=== PATIENT | male | born 1970 | race Caucasian/White ===

== ENCOUNTER 2019-05-22 02:38 | Observation (INO) | payer OTHER, SELFPAY ==
[2019-05-22] VITALS (14 sets, daily range): BP systolic 119–156; BP diastolic 67–108; PULSE 75–100; RESP 16–24; TEMP 36.1–37.7; O2SAT 88–100; BMI 35.8; BMI 38.9
--- NOTE | 2019-05-22 03:11 | CT_ITS ---
STUDY: CT ABDOMEN AND PELVIS WITH CONTRAST REASON FOR EXAM: Male, 48 years old. Right and mid abdominal pain RADIATION DOSAGE (If Supplied By Facility): CTDIvol = ( 18.32 ) mGy, DLP = ( 1202.02 ) mGycm TECHNIQUE: Transaxial images were obtained from the dome of the diaphragm to the symphysis pubis without oral contrast. 100ML IV Isovue 300 was administered. Sagittal and coronal images were reconstructed. Individualized dose optimization techniques were used for this CT. COMPARISON: None. FINDINGS: The lung bases are clear. The liver is normal. No dilated intrahepatic biliary radicles. A small gallstone but no pericholecystic fluid collection The spleen is normal. The pancreas is normal. Both adrenals are normal. The kidneys are normal with no masses, calculi or hydronephrosis The stomach is normal. There is no bowel distention, acute appendicitis or diverticulitis. No constricting lesions are seen in large bowel. The abdominal wall is intact with no hernias. There is no ascites or any free intraperitoneal air. No indication of epiploic appendagitis The vascular structures in the retroperitoneum are normal. There is no retrocrural, retroperitoneal or mesenteric adenopathy. The bones and joints are normal. The urinary bladder is normal. The prostate is normal--. There is no inguinal or pelvic adenopathy. There is no inguinal hernia. . CT/Abdomen/Pelvis W IV Cont ONLY IMPRESSION: A small gallstone. No pericholecystic fluid collection. No acute appendicitis or diverticulitis Electronically Signed: Jagdeep Shrestha MD at 4:35 EDT Tel , Service support ,
[2019-05-22 03:18] LABS: Absolute Neutrophil Count 3.4 X10^3/uL (2.0-7.7); Basophil# 0.06 X10^3/uL; Basophil% 0.6 % (0-1); Eosinophil# 0.43 X10^3/uL; Eosinophils% 4.5 % (0-5); Hematocrit 44.9 % (40-54); Hemoglobin 15.6 g/dL (13.0-16.5); Lymphocyte % 45.5 % (19-41); Mean Corp Hgb Conc 34.7 g/dL (32-36); Mean Corpuscular Hgb 31.1 pg (27.0-32.0); Mean Corpuscular Volume 89.6 fL (80-94); Mean Platelet Vol. 9.2 fl (6.2-12.0); Monocyte# 1.27 X10^3/uL; Monocyte% 13.1 % (0-10); NRBC Flagged by Analyzer 0 % (0-5); Neutrophil # 3.44 X10^3/uL (2.7-7.7); Neutrophil % 35.7 % (47-70); Platelet Count 235 K/mm3 (150-450); RBC Distribution Width CV 12.6 % (11.6-14.6); RBC Distribution Width SD 41.1 fl (35.1-43.9); Red Blood Count 5.01 M/mm3 (4.6-6.2); White Blood Count 9.7 K/mm3 (4.4-11.0)
[2019-05-22] MEDS: 0.9% Normal Saline 1,000 ML 1000 ML IV (03:28)
[2019-05-22] MEDS: Ondansetron 4 MG/2 ML Vial IV (03:28)
[2019-05-22] MEDS: Ketorolac 30 MG/ML Syringe IV (03:29)
[2019-05-22] MEDS: Morphine 4 MG/ML Syringe IV (03:30)
--- NOTE | 2019-05-22 03:32 | ED.VIS.GI ---
History of Present Illness Informant: Patient - Abdominal Pain/Flank Pain Onset: Hours - 3 Context: Gradual Onset Timing: Continuous, Waxes and wanes Quality: Aching Location: - - across upper abdomen, radiates somewhat into mid-back Current Severity: Severe Maximum Severity: Severe Worsened by: - - sitting; states he can't find a comfortable position Relieved by: Nothing - Nausea/Vomiting/Emesis GI Symptom: Nausea. Negative for: Vomiting Severity: Moderate - Diarrhea/Melena/Hematochezia GI Symptom: Negative for: Diarrhea, Melena, Hematochezia Associated Symptoms: Negative for: Dysuria, Frequency, Hematuria, Urgency Narrative: Last ate about 3-4 hours prior to onset of symptoms, states he had taco meat. No history of abdominal surgeries or other major medical problems. Prior similar symptoms: No <Hammad Estes - Last Filed: 05/22/19 06:46> <Esha Arteaga - Last Filed: 05/22/19 08:30> Chief Complaint: Abd Pain Past Medical History Past Medical History: None Smoking Status: Never smoker Drugs: None <Hammad Estes - Last Filed: 05/22/19 06:46> <Esha Arteaga - Last Filed: 05/22/19 08:30> - Allergies and Home Meds Allergies/Adverse Reactions: Allergies shellfish derived Allergy (Verified 05/22/19 02:51) Anaphylaxis Primary Care Physician: Dennis Austin DO [Primary Care Provider] - Review of Systems General: Reports: Malaise. Denies: Chills, Fever, Sweats Eyes: Denies: Visual changes - bilaterally, Diplopia ENT: Denies: Rhinorrhea, Sore throat Cardiovascular: Denies: Chest pain, Palpitations Respiratory: Denies: Dyspnea, Cough, Dyspnea on exertion Gastrointestinal: Reports: Abdominal pain, Nausea. Denies: Vomiting, Diarrhea, Melena, Hematochezia Genitourinary: Denies: Dysuria, Hematuria, Frequency Musculoskeletal: Reports: Back pain. Denies: Extremity Pain Skin: Denies: Rash, Wounds Neurological: Denies: Headache, Weakness, Numbness <Hammad Estes - Last Filed: 05/22/19 06:46> Physical Exam Vital Signs/Narrative: Vital Signs Temp Pulse Resp BP Pulse Ox 05/22/19 02:39 99.8 F H 80 24 H 145/108 H 96 Inital Vital Signs reviewed: Yes General: Well nourished, Well developed, No Acute Distress - Uncomfortable, no distress Head: Normocephalic, Atraumatic Eyes: Perrl, EOMI ENT: Moist mucous membranes, No rhinorrhea Neck: Supple, Nontender Cardiovascular: Regular rate, Regular rhythm, No murmurs Respiratory: No distress, CTA bilaterally, Chest nontender Abdomen: Soft, Nondistended, Normal bowel sounds, Tender - Throughout upper abdomen, mostly right upper quadrant. Minimal discomfort with palpation right lower quadrant., Cash's sign. Negative for: Rebound tenderness Back: Nontender, Normal Inspection. Negative for: CVA tenderness Extremities: Nontender, No edema. Negative for: Calf Tenderness Skin: Normal color, No rash, Diaphoresis - in face, No Trauma Neurological: Alert, Oriented x3, Cranial nerves II-XII grossly intact, Normal Strength, Normal Sensation Psychological: Normal affect, Normal Mood <Hammad Estes - Last Filed: 05/22/19 06:46> Vital Signs/Narrative: Vital Signs Pulse Resp BP Pulse Ox 05/22/19 04:52 87 22 H 125/71 H 96 <Esha Arteaga - Last Filed: 05/22/19 08:30> Diagnostic/Tx/Re-eval Impressions Abdomen/Pelvis CT 05/22/19 03:11 IMPRESSION: A small gallstone. No pericholecystic fluid collection. No acute appendicitis or diverticulitis Electronically Signed: Jagdeep Shrestha MD at 4:35 EDT Tel , Service support , ADDENDUM: 05/22/19 0529 05/22/19 03:11 Abdomen/Pelvis W IV Cont ONLY [CT] Stat 05/22/19 05:29 US Gallbladder [Gallbladder] [US] Stat Laboratory Results 05/22/19 05/22/19 05/22/19 02:45 02:45 04:45 WBC 9.7 RBC 5.01 Hgb 15.6 Hct 44.9 MCV 89.6 MCH 31.1 MCHC 34.7 RDW Std Deviation 41.1 RDW Coeff of Bereket 12.6 Plt Count 235 MPV 9.2 Immature Gran % (Auto) 0.600 Neut % (Auto) 35.7 L Lymph % (Auto) 45.5 H [place] % (Auto) 13.1 H Eos % (Auto) 4.5 Baso % (Auto) 0.6 Absolute Neuts (auto) 3.4 Absolute Lymphs (auto) 4.40 Absolute Nucleated RBC 0.00 Nucleated RBC % 0 Sodium 143 Potassium 3.7 Chloride 107 Carbon Dioxide 28.0 Anion Gap 8 BUN 17 Creatinine 0.89 Estim Creat Clear Calc 91.60 Est GFR (MDRD) Af Amer 118 Est GFR (MDRD) Non-Af 97 BUN/Creatinine Ratio 19.2 Glucose 119 H Calcium 9.6 Total Bilirubin 0.40 AST 29 ALT 77 H Alkaline Phosphatase 72 Total Protein 7.6 Albumin 4.1 Globulin 3.5 Albumin/Globulin Ratio 1.2 Lipase 395 H Urine Color Yellow Urine Clarity Clear Urine pH 5.0 Ur Specific [place] 1.015 Urine Protein Negative Urine Glucose (UA) Normal Urine Ketones Negative Urine Occult Blood Negative Urine Nitrite Negative Urine Bilirubin Negative Urine Urobilinogen Normal Ur Leukocyte Esterase Negative Urine RBC 0 SEEN Urine WBC 0 SEEN Ur Squamous Epith Cells 0 SEEN Urine Bacteria 0 SEEN Urine Mucus 0 SEEN - Medical Decision Making With IV fluids, Zofran, morphine, Toradol, patient is feeling much better. His labs are only remarkable for a lipase that is just barely outside of the normal range at 395, the normal range ending at 393. The rest of his liver enzymes including total bilirubin are unremarkable, he has no significant leukocytosis. CT of the abdomen and pelvis was performed since ultrasound is not available at this hour, which shows an intraluminal gallstone, but also a gallstone that appears to be stuck within the cystic duct. There is no ductal dilatation of the common bile duct or pancreatic duct from what could be said about them on CT imaging. I discussed all this with the radiologist as he initially did not mention the other stone that was in the cystic duct. This is the stone that I suspect is giving him symptoms right now. He is clinically and hemodynamically stable. I discussed with Dr. roa on for surgery, who advises getting an ultrasound and watching him in the emergency department, reporting the results to her when they are available, as depending on the results, he may need to be admitted since there is no one at this hospital this weekend who is able to perform ERCP, should he need it. I discussed this with the patient and his , and he will be checked out to the oncoming emergency physician for final disposition. <Hammad Estes - Last Filed: 05/22/19 06:46> - Medical Decision Making Dr. Roa presented to the emergency room after reviewing the patient's ultrasound. She will take the patient for a lap memo from the emergency room. If ERCP is needed Dr. Storey will be coming in to help with that as well. Disposition: Admit Impression: Cholecystitis secondary to stone and common bile duct. <Esha Arteaga - Last Filed: 05/22/19 08:30> ED Disposition <Hammad Estes - Last Filed: 05/22/19 06:46> <Esha Arteaga - Last Filed: 05/22/19 08:30> - Plan for ED Patient: Diagnosis: Biliary colic, Cystic duct calculus, Cholelithiasis Referrals: Dennis Austin DO [Primary Care Provider] -
[2019-05-22 03:41] LABS: ALB/GLOB Ratio 1.2 RATIO (0.9-2.4); AST(SGOT) 29 U/L (15-37); Alanine Aminotransfer ALT/SGPT 77 U/L (16-61); Albumin, Serum 4.1 g/dL (3.2-5.0); Alkaline Phosphatase 72 U/L (45-117); Anion Gap 8 (5-15); BUN 17 mg/dL (7-18); BUN/Creat Ratio 19.2 RATIO (10-20); Calcium,Total 9.6 mg/dL (8.5-10.1); Chloride 107 mmol/L (98-107); Creatinine, Serum 0.89 mg/dL (0.70-1.30); EST Glomerular Filtration Rate 97 mL/min (>60); Est Glom Filt Rate - Afr Amer 118 mL/min (>60); Globulin 3.5 g/dL (2.2-4.2); Glucose 119 mg/dL (74-106); Lipase 395 U/L (73-393); Potassium 3.7 mmol/L (3.5-5.1); Protein, Total 7.6 g/dL (6.4-8.2); Sodium Level 143 mmol/L (136-145)
[2019-05-22 04:53] LABS: Bacteria 0 SEEN /hpf (None Seen); Mucous, Urine 0 SEEN /hpf (<or=2+); Red Blood Cells-Urine 0 SEEN /hpf (0-5); Squamous Epithelial Cells - UA 0 SEEN /hpf (0-5); White Blood Cells 0 SEEN /hpf (0-5)
[2019-05-22 04:54] LABS: Color, Urine Yellow (Yellow); Glucose, Dipstick Normal (Normal); Ketone-Dipstick Negative (Negative); Leukocyte Esterase-Dipstick Negative /ul (Negative); Nitrite-Dipstick Negative (Negative); Occult Blood-Urine Negative /ul (Negative); Protein-Dipstick Negative (Negative); Specific Gravity, Urine 1.015 (1.002-1.030); Urine Bilirubin Dipstick Negative (Negative); Urine Clarity Clear (Clear); Urine Urobilinogen Normal (Normal)
--- NOTE | 2019-05-22 05:29 | US_ITS ---
STUDY: ABDOMINAL ULTRASOUND - RIGHT UPPER QUADRANT REASON FOR VISIT: Male, 48 years old. Right upper quadrant pain. TECHNIQUE: Ultrasound evaluation of the right upper quadrant was performed with real-time and static kim-scale imaging. TECHNICAL QUALITY: Adequate. COMPARISON: None. FINDINGS: Liver: The liver measures 20 cm. There is mild increased echogenicity consistent with fatty infiltration. The bile ducts are within normal limits. There is hepatic color flow. The direction of portal flow is hepatopetal. There is no demonstrated mass lesion. Gallbladder: Normal distended gallbladder. The gallbladder wall measures 3.5 mm. There is a negative sonographic Cash's sign. There is mild pericholecystic fluid. There are small gallstones near the gallbladder neck. Common Bile Duct (C.B.D.): The common bile duct measures 6 mm. There is questionable echogenic shadow which may represent stone in the proximal common bile duct. Pancreas: The pancreas is grossly unremarkable but the tail of the pancreas is obscured by bowel gas. There is normal echogenicity of the pancreas. There is no demonstrated pancreatic mass or cyst. Right Kidney: Normal size of the right kidney. The right kidney measures 13 x 5.7 x 4.9 cm. Normal renal cortex. The right cortex measures 1.5 cm. There is no demonstrated renal mass or cyst. There is no right hydronephrosis. US/Gallbladder IMPRESSION: Multiple small gallstones with mild pericholecystic fluid. Borderline to mild thickening of the gallbladder wall. Questionable small stone in the proximal common bile duct. Mild fatty infiltration of the liver. Electronically Signed: Matti Licona MD at 8:46 EDT Tel , Service support ,
--- NOTE | 2019-05-22 08:35 | EKG12_ITS ---
Test Reason : Blood Pressure : / mmHG Vent. Rate : 065 BPM Atrial Rate : 065 BPM P-R Int : 180 ms QRS Dur : 106 ms QT Int : 412 ms P-R-T Axes : 066 017 030 degrees QTc Int : 428 ms Sinus rhythm with Fusion complexes Otherwise normal ECG Confirmed by CITLALI PALACIOS, MAN ([id number]), script editor HARVINDER SCALES ([id number]) on 05/24/2019 1:51:34 PM Referred By: BECKIE Confirmed By:MAN GODWIN MD
--- NOTE | 2019-05-22 08:35 | PCM.HP.STD ---
History of Present Illness Date of Admission: 05/22/19 The patient is a 48 year old M into the ER due to right upper quadrant pain which started about 11:30 PM last night. Patient did say the pain resolved after getting the morphine and Toradol. Patient had a CT of the pelvis did show small stones at the neck of the gallbladder as well as one in the cystic duct near the bifurcation with the common hepatic duct. Patient's labs showed a slightly elevated lipase at 395 the rest of the liver functions were normal. Patient did have some nausea and vomiting last night. Patient currently has no abdominal pain denies any nausea or vomiting ultrasound of the gallbladder appears that the small stone may be in the common bile duct but it is hard to tell, official report pending, gallbladder wall 3 mm with pericholecystic fluid. Patient is never had any abdominal surgeries in the past. Past Medical History Allergies shellfish derived Allergy (Verified 05/22/19 02:51) Anaphylaxis Home Medications: Ambulatory Orders Medication Instructions Recorded NK 05/22/19 Surgical History: - - Back: L4-L5 about 6 weeks ago Psychiatric History: No pertinent psych hx Lives: Spouse/ Significant Other Smoking Status: Never smoker Alcohol: Occasional - Patient has had 3 beers this week, he has cut back per the . Drugs: None - *Family History Maternal History Items: No pertinent history Review of Systems Constitutional: Reports: Anorexia, Chills, Fever Eyes: Denies: Blurred vision HEENT: Denies: Difficulty Swallowing VTE Information - Inpt Only VTE Present on Admission: Yes VTE Mechan Device Prophylaxis: SCD's VTE Pharm Prophylaxis ordered?: No Reason prophylaxis not ordered:: Medical Contraindication - surgery Patient Problems: Active and Suspected Problems Biliary colic (Acute) Cystic duct calculus (Acute) Cholelithiasis (Acute) - Physical Exam General: Alert, Oriented x3, Cooperative, No apparent distress HEENT: Atraumatic Lungs: Normal air movement Cardiovascular: Regular rate Abdomen: Soft, Non Tender, Non-Distended Extremities: No clubbing, No cyanosis, No edema Neurological: Cranial nerves II-XII grossly intact Psych/Mental Status: Normal Affect Vital Signs Temp Pulse Resp BP Pulse Ox 99.8 F H 87 22 H 125/71 H 96 05/22/19 02:39 05/22/19 04:52 05/22/19 04:52 05/22/19 04:52 05/22/19 04:52 Oxygen Delivery Method Room Air Weight: 222 lb Body Mass Index (BMI) 35.8 Laboratory Tests Past 24 Hrs 05/22/19 05/22/19 05/22/19 02:45 02:45 04:45 WBC 9.7 RBC 5.01 Hgb 15.6 Hct 44.9 MCV 89.6 MCH 31.1 MCHC 34.7 RDW Std Deviation 41.1 RDW Coeff of Bereket 12.6 Plt Count 235 MPV 9.2 Immature Gran % (Auto) 0.600 Neut % (Auto) 35.7 L Lymph % (Auto) 45.5 H [place] % (Auto) 13.1 H Eos % (Auto) 4.5 Baso % (Auto) 0.6 Absolute Neuts (auto) 3.4 Absolute Lymphs (auto) 4.40 Absolute Nucleated RBC 0.00 Nucleated RBC % 0 Sodium 143 Potassium 3.7 Chloride 107 Carbon Dioxide 28.0 Anion Gap 8 BUN 17 Creatinine 0.89 Estim Creat Clear Calc 91.60 Est GFR (MDRD) Af Amer 118 Est GFR (MDRD) Non-Af 97 BUN/Creatinine Ratio 19.2 Glucose 119 H Calcium 9.6 Total Bilirubin 0.40 AST 29 ALT 77 H Alkaline Phosphatase 72 Total Protein 7.6 Albumin 4.1 Globulin 3.5 Albumin/Globulin Ratio 1.2 Lipase 395 H Urine Color Yellow Urine Clarity Clear Urine pH 5.0 Ur Specific Dennis 1.015 Urine Protein Negative Urine Glucose (UA) Normal Urine Ketones Negative Urine Occult Blood Negative Urine Nitrite Negative Urine Bilirubin Negative Urine Urobilinogen Normal Ur Leukocyte Esterase Negative Urine RBC 0 SEEN Urine WBC 0 SEEN Ur Squamous Epith Cells 0 SEEN Urine Bacteria 0 SEEN Urine Mucus 0 SEEN Assessment/Plan All Active Problems Biliary colic (Acute) Cystic duct calculus (Acute) Cholelithiasis (Acute) 48-year-old male with cholelithiasis and acute cholecystitis Discussed with patient that he does likely have a small stone already in the common bile duct but it looks to be 5 mm or less and the cystic duct is 6 mm this may be able to be passed with the cholangiogram. Discussed with patient that if it is unable to be passed he will need an ERCP post op. Patient is were agreeable to plan and agreed to proceed. Did also discuss with patient and his that if we are unable to do an ERCP tomorrow due to availability of the surgeon or staff, he may also need to be transferred. Reviewed the anatomy with the patient and discussed the procedure: laparoscopic cholecystectomy with possible cholangiograms, possible open. Review risks including but not limited to bleeding, infection, hernia, bile leak, retained gallstones requiring another procedure ERCP- Endoscopic Retrograde Cholangiopancreatography, injury to another organ (bile ducts, common bile duct, small bowel, etc.) which may require transfer to tertiary care facility and conversion to an open procedure. All questions were answered. Sandra Roa M.D. Pager: [phone] [facility] [address] [place] [address], [address] [place] [address] Office: [phone]
--- NOTE | 2019-05-22 09:30 | GALL_PTH ---
PATIENT: RONA DICKERSON SHERRI LOC: MS3 U#:[id number] AGE/SX: 48/M ROOM: MS305 RE05/22/[address]: Dr. Sandra Roa MD : 1970 BED: 1 DIS: 05/23/2019 SPEC #: [id number] RECD: 05/24/19 07:57 STATUS: NIK REQ #: [id number] KATHLEEN: 05/22/19 09:[address]: Sandra Roa DEPT: SURGICAL PATHOLOGY RECD BY: Jian Anderson ENTERED: 05/24/19 08:21 SP TYPE: PALMER GUILLEN DR: Dr. Dennis Austin, DO Tissues: Gallbladder, NOS Procedures: Surgery Specimen Level III HEADER OPERATION: Laparoscopic cholecystectomy with IOC PRE-OP DIAGNOSIS: Biliary colic, cystic duct calculus, cholelithiasis TISSUE SUBMITTED: Gallbladder MICROSCOPIC DIAGNOSIS Gallbladder, cholecystectomy: Chronic cholecystitis. Benign pericystic lymph node. SJ:elissa 05/25/19 MICROSCOPIC DESCRIPTION Slides are reviewed. GROSS DESCRIPTION Received is one container labeled with the patient's name and designated gallbladder. The specimen consists of a gallbladder measuring 7 x 3 x 2.5 cm. The external surface is pink-paez, smooth and glistening for the most part. Focally it is granular, hemorrhagic and contains cautery artifact. The gallbladder contains green-yellow mucoid bile. No stones are identified in the container or in the gallbladder. The mucosa is bile-stained and without any mass lesions. The gallbladder wall measures up to 0.2 cm in thickness. Exchange Architect sections from the gallbladder and the cystic duct are submitted in one cassette. / SHARMIN:elissa 05/24/19 TC:3 CPT: 41818
--- NOTE | 2019-05-22 09:42 | RAD_ITS ---
STUDY: INTRAOPERATIVE CHOLANGIOGRAM. REASON FOR EXAM: Male, 48 years old. Status post laparoscopic cholecystectomy. FLUOROSCOPY TIME (if supplied): (18.4 seconds) TECHNIQUE: Multiple cine images were obtained fluoroscopically on a C-arm following injection of contrast. COMPARISON: None. FINDINGS: The common bile duct is opacified. No definite constant filling defect is seen. There is drainage into the duodenum. The cystic duct is seen. This collection of contrast in the region of the gallbladder. RAD/Cholangiogram/ O R,Initial IMPRESSION: No definite constant filling defect is seen in the common bile duct. Electronically Signed: Matti Licona MD at 10:52 EDT Tel , Service support ,
[2019-05-22] MEDS: Bupivacaine Mpf 0.5% 30 ML VIAL (10:47)
--- NOTE | 2019-05-22 10:51 | PCM.OPRPT ---
Report of Operation Date of Procedure: 05/22/19 Pre-Operative Diagnosis: Acute cholecystitis, cholelithiasis, possible choledocholithiasis Post-Operative Diagnosis: Acute cholecystitis, cholelithiasis Surgery/Procedure Performed:: Laparoscopic cholecystectomy with cholangiograms elementary art teacher: Ricarda Schroeder Type of Anesthesia:: General/Supplemental Anesthesiologist: Zhane Waterman Special Medications: Cefotan 2 g IV x1 Specimen's removed: Gallbladder Estimated Blood Loss (mL): 10 cc Fluids Replaced: 1000 cc Description of Procedure: Indications this is a 48 year-old male who developed abdominal pain/nausea/vomiting and on workup was found to have cholelithiasis, acute cholecystitis with a normal common bile duct, slight elevated lipase but normal LFTs. Laparoscopic cholecystectomy was elected. Description procedure: The patient was placed on operating table in supine position. General Anesthesia was induced. A timeout was completed verifying correct patient, procedure, site, position and special equipment prior to beginning procedure. The abdomen was prepped and draped in usual sterile fashion. An incision was made in the natural skin line above the umbilicus. The fascia was elevated and incised. The peritoneum was elevated and incised. Entry into the peritoneum was confirmed visually and no bowel was noted in the vicinity of the incision. Thompson trocar was placed. The abdomen was insufflated with carbon dioxide to a pressure of 12-15 mmHg. Patient tolerated insufflation well. The laparoscope was then inserted and abdomen inspected. No injuries from initial trocar placement were noted. Additional trochars were then inserted in the following locations 5 mm trocar in the epigastrium and 2 more 5 mm trochars along the right costal margin. The abdomen was inspected no abnormalities were found. The table is placed in reverse Trendelenburg position with the right side up. The dome of the gallbladder was grasped with atraumatic grasper passed through the lateral port and retracted over the dome of the liver. Infundibulum was then grasped with atraumatic grasper through the midclavicular port and retracted to the right lower quadrant. This maneuver exposed Calot's triangle. The peritoneum overlying the gallbladder infundibulum was then incised and cystic duct and artery identified and circumferentially dissected. Ghotra catheter was used for cholangiograms there is good flow into the duodenum no defect seen in the common bile duct or in the right and left bile ducts. The cystic duct and artery were then doubly clipped and divided close to the gallbladder. The gallbladder then dissected from its peritoneal attachments by electrocautery. Hemostasis was checked and the gallbladder and contained stones were removed using the endoscopic retrieval bag through the umbilical port. The gallbladder is passed off table as specimen. The gallbladder fossa was copiously irrigated with saline and hemostasis obtained. There is no evidence of bleeding from the gallbladder fossa or cystic artery leakage of bile from the cystic duct stump. Secondary trochars removed under direct vision. No bleeding was noted the trocar sites. The laparoscope was withdrawn and umbilical trocar removed. The abdomen was allowed to collapse. The fascia of the 12 mm trocar was closed with a [id number] 0 Vicryl suture. The skin was closed with sutures of 4-0 Monocryl and Steri-Strips. The patient was extubated. The patient tolerated procedure well and was taken to the postanesthesia care unit in stable condition. - Complications None
[2019-05-22] MEDS: Lactated Ringers 1,000 ML 125 ML IV ×2 (13:40→21:50)
--- NOTE | 2019-05-22 17:50 | NURSING ---
Walked in the [facility] all the way around the unit and now sitting in chair. Denies needs. Would like to walk again one more time tonight. DEPUTY SHERIFF is aware.
--- NOTE | 2019-05-22 21:30 | NURSING ---
Pt up ambulating in hallway at this time.
[2019-05-22] MEDS: Acetaminophen 325 MG Tablet 650 MG PO (21:52)
[2019-05-23 02:10] VITALS: BP 113/64; PULSE 90; RESP 17; TEMP 36.6; O2SAT 96
[2019-05-23] MEDS: Lactated Ringers 1,000 ML 125 ML IV (05:30)
--- NOTE | 2019-05-23 05:43 | NURSING ---
Pt down to CT at this time.
--- NOTE | 2019-05-23 06:00 | CT_ITS ---
STUDY: CT ABDOMEN WITHOUT CONTRAST REASON FOR EXAM: Male, 48 years old. Check on cystic duct stone. Status post ERCP 05/22/2019. RADIATION DOSAGE (If Supplied By Facility): CTDIvol = ( 18.45 ) mGy, DLP = ( 635.82 ) mGycm TECHNIQUE: Transaxial images were obtained without intravenous contrast, and without oral contrast. Sagittal and coronal images were reconstructed. Individualized dose optimization techniques were used for this CT. COMPARISON: 05/22/2019 at 4:11 AM. FINDINGS: Minimal curvilinear subsegmental atelectases in the medial aspect of the lung bases. The visualized portions of the heart are within normal limits. Normal liver. Laparoscopic postsurgical absence of the gallbladder. 3.6 x 2.7 mm calcified gallstone in the cystic duct. No intrahepatic or extrahepatic biliary ductal dilatation. Normal spleen. Normal pancreas. Normal bilateral adrenal glands. Normal right kidney. Normal left kidney. Normal visualized stomach. Normal small intestine. Normal colon. The appendix is visualized and appears normal. Normal abdominal aorta. Normal inferior vena cava. Normal retroperitoneum. Normal abdominal wall. Minimal calcification of the posterior protruding annulus at the L4-L5 disc level. No acute osseous abnormality. CT/Abdomen without IV Contrast IMPRESSION: 1. 3.6 x 2.7 mm calcified gallstone in the cystic duct following laparoscopic cholecystectomy. 2. No other additional findings or changes when compared to 05/22/2019 at 4:11 AM. Electronically Signed: Haresh Avalos MD at 8:55 EDT , Service support ,
[2019-05-23 06:02] LABS: Absolute Lymphocyte Count 1.58 X10^3/uL (0.83-4.51); Absolute Neutrophil Count 6.8 X10^3/uL (2.0-7.7); Basophil# 0.01 X10^3/uL; Basophil% 0.1 % (0-1); Hematocrit 41.2 % (40-54); Hemoglobin 13.8 g/dL (13.0-16.5); Lymphocyte # 1.58 X10^3/ul (4.0); Lymphocyte % 17.2 % (19-41); Mean Corp Hgb Conc 33.5 g/dL (32-36); Mean Corpuscular Hgb 30.3 pg (27.0-32.0); Mean Corpuscular Volume 90.5 fL (80-94); Mean Platelet Vol. 9.2 fl (6.2-12.0); Monocyte# 0.74 X10^3/uL; NRBC Flagged by Analyzer 0 % (0-5); Neutrophil # 6.83 X10^3/uL (2.7-7.7); Neutrophil % 74.2 % (47-70); Platelet Count 215 K/mm3 (150-450); RBC Distribution Width CV 12.8 % (11.6-14.6); RBC Distribution Width SD 41.9 fl (35.1-43.9); Red Blood Count 4.55 M/mm3 (4.6-6.2); White Blood Count 9.2 K/mm3 (4.4-11.0)
[2019-05-23 06:31] LABS: AST(SGOT) 35 U/L (15-37); Alanine Aminotransfer ALT/SGPT 79 U/L (16-61); Albumin, Serum 3.4 g/dL (3.2-5.0); Alkaline Phosphatase 62 U/L (45-117); Anion Gap 10 (5-15); BUN 8 mg/dL (7-18); BUN/Creat Ratio 11.7 RATIO (10-20); Bilirubin, Direct 0.09 mg/dL (0.00-0.30); Calcium,Total 8.9 mg/dL (8.5-10.1); Chloride 108 mmol/L (98-107); Creatinine, Serum 0.68 mg/dL (0.70-1.30); EST Glomerular Filtration Rate 131 mL/min (>60); Est Glom Filt Rate - Afr Amer 159 mL/min (>60); Estimated Creatinine Clearance 119.89 ml/min; Glucose 117 mg/dL (74-106); Lipase 164 U/L (73-393); Potassium 3.8 mmol/L (3.5-5.1); Protein, Total 6.4 g/dL (6.4-8.2); Sodium Level 143 mmol/L (136-145)
--- NOTE | 2019-05-23 07:00 | DCINST_ITS ---
Discharge Diet: Light diet - advance as tolerated Discharge Activity: May not drive while taking narcotic pain medications. Lifting Restrictions: no lifting > 20 lbs x 3 weeks, no strenous exercise for 6 wks Call your doctor if your incision/area has: Continuous Slow Oozing, Sudden Incr eased Bleeding, Increased Pain/ Swelling, Increased Redness, Foul Smelling Discharge, Swelling at the incision site Call your doctor if you observe: Fever of 101 or Higher Remove Dressing in (days):: 0 - steris stay on for 7-10 days if they dont fall off ok to remove after 10 days Additional Instructions: Okay to take ibuprofen 400-600 mg PO q6hr PRN along with the percocet or hydrocodone. Avoid Tylenol since there is already Tylenol in the percocet or hydrocodone. Take all pain meds with food. percocet or hydrocodone can cause constipation recommend taking daily stool softener (i.e. Colace/docusate) while taking the pain meds. Recommend starting some MiraLAX in 2 days if no bowel movement. If still no bowel movement the following day recommend taking magnesium citrate half the bottle and waiting 4-6 hours if still no results take the other half the bottle. Allergies/Adverse Reactions: Allergies shellfish derived Allergy (Verified 05/22/19 13:18) Anaphylaxis Medications to take at Discharge NK 05/22/19 Primary Care Physician: Dennis Austin DO [Primary Care Provider] - Test Results: Test results from this visit will be discussed in further detail at your follow- up appointment, if applicable. Please Follow Up With: Sandra Roa MD - After 5 PM/weekends call [phone] with any concerns When: Call the office for a follow-up appointment in 2 weeks. Proposed Discharge Date: 05/23/19
--- NOTE | 2019-05-23 07:20 | PN.SURG_ITS ---
Patient Problems: Active and Suspected Problems Biliary colic (Acute) Cystic duct calculus (Acute) Cholelithiasis (Acute) Subjective: Patient tolerating clears only needed Tylenol for pain. Patient has been ambulating having flatus and urinating well. - Physical Exam General: Alert, Oriented x3, Cooperative, No apparent distress HEENT: Atraumatic Lungs: Normal air movement Cardiovascular: Regular rate Abdomen: Soft, Non-Distended, Tender - Near incisions clean dry and intact with op sites, no peritoneal signs Extremities: No clubbing, No cyanosis, No edema Neurological: Cranial nerves II-XII grossly intact Psych/Mental Status: Normal Affect Vital Signs Temp Pulse Resp BP Pulse Ox 97.8 F 90 17 113/64 96 05/23/19 02:10 05/23/19 02:10 05/23/19 02:10 05/23/19 02:10 05/23/19 02:10 Oxygen Flow Rate (L/min) 2 Oxygen Delivery Method Room Air Weight: 241 lb Body Mass Index (BMI) 38.9 Intake and Output for Last 24 Hours 05/21/19 05/22/19 05/23/19 23:59 23:59 23:59 Intake Total 2683 / 4067 2225 / 2225 Balance 2683 / 4067 2225 / 2225 Laboratory Tests Past 24 Hrs 05/23/19 05/23/19 05:14 05:20 WBC 9.2 RBC 4.55 L Hgb 13.8 Hct 41.2 MCV 90.5 MCH 30.3 MCHC 33.5 RDW Std Deviation 41.9 RDW Coeff of Bereket 12.8 Plt Count 215 MPV 9.2 Immature Gran % (Auto) 0.500 Neut % (Auto) 74.2 H Lymph % (Auto) 17.2 L [place] % (Auto) 8.0 Eos % (Auto) 0.0 Baso % (Auto) 0.1 Absolute Neuts (auto) 6.8 Absolute Lymphs (auto) 1.58 Absolute Nucleated RBC 0.00 Nucleated RBC % 0 Sodium 143 Potassium 3.8 Chloride 108 H Carbon Dioxide 25.0 Anion Gap 10 BUN 8 Creatinine 0.68 L Estim Creat Clear Calc 119.89 Est GFR (MDRD) Af Amer 159 Est GFR (MDRD) Non-Af 131 BUN/Creatinine Ratio 11.7 Glucose 117 H Calcium 8.9 Total Bilirubin 0.30 Direct Bilirubin 0.09 AST 35 ALT 79 H Alkaline Phosphatase 62 Total Protein 6.4 Albumin 3.4 Globulin 3.0 Lipase 164 Medical Necessity - Tobacco Use Smoking Status: Never smoker Assessment/Plan All Active Problems Biliary colic (Acute) Cystic duct calculus (Acute) Cholelithiasis (Acute) 48-year-old male with cholelithiasis and acute cholecystitis status post laparoscopic cholecystectomy Patient CT abdomen pelvis did show on my read small stone is still in the cystic duct just distal to the clips. Going to the cholangiograms the proximal cystic duct is quite small, so this stone is not likely to move and is about 3 mm in size. Did review the patient's CT, ultrasound, cholangiograms and repeat CT with the patient and his . They had no further questions this time. Will advance patient's diet to regular if he is able to tolerate okay to DC home. Sandra Roa M.D. Pager: [phone] [facility] [address] [place] [address], [address] [place] [address] Office: [phone]
[2019-05-23 07:51] VITALS: BP 103/80; PULSE 88; RESP 18; TEMP 36.1; O2SAT 99
[2019-05-23] MEDS: Docusate Sodium 100 MG Capsule PO (07:56)
--- NOTE | 2019-05-23 08:00 | NURSING ---
Walking in [facility]. Pt is aware that he has to eat breakfast and if tolerates can go home. aware as well. Breakfast was ordered at 0730 this morning.
== END 2019-05-23 09:04 | disposition home or self-care (01) ==
LOC: ED 03:33 → SDC 08:47 → MS3 12:51
PROVIDERS: Admitting Provider Surgery; Emergency Provider Emergency Medicine; Family Provider Family Medicine; PCP Family Medicine; Visit Provider Surgery
PROC: (CPT 47610; principal; 2019-05-22 09:30)
DX: K80.12 Calculus of gallbladder with acute and chronic cholecystitis without obstruction (principal); E66.01 Morbid (severe) obesity due to excess calories; Z68.35 Body mass index [BMI] 35.0-35.9, adult; Z71.3 Dietary counseling and surveillance
CPT/HCPCS: 00790; 47563; 36415; 74150; 74177; 74300; 76000; 76705; 80048; 80053; 80076; 81001; 83690; 85025; 88304; 93005; 96361; 96374; 96375; 99218; 99284; J7030; J7120; Q9967; A4216; G0378; J1610; J2405

== ENCOUNTER 2019-06-25 13:00 | Outpatient (RCR) | payer OTHER, SELFPAY ==
--- NOTE | 2019-05-05 09:33 | HP.PTEVAL_ITS ---
Patient's Visit Information RONA DICKERSON is a 48 year old M referred to Physical Therapy by EDIE TOLENTINO with a diagnosis of LUMBAR INTERVERTEBRAL DISC DISPLACEMENT. S/P DISCECTOMY 04/13/19. Date of Evaluation: 05/05/19 Physical Therapist: Elenita Garber, PT, Cert MDT - Visit Plan Frequency: 2-3x /Week Duration: 4-6 Weeks Plan: *NO LIFTING > 25 LBS*. S/P LUMBAR DISCECTOMY APRIL 13 2019 ( 3 WEEKS PO). POSTURE CORRECTION/STRENGTHENING, INSTRUCTION IN APPROPRIATE BODY MECHANICS AND ACTIVITY MODIFICATIONS. DLS STARTING WITH A NEUTRAL SPINE PROGRESSING ROM TOLERATED. JANNETTE LE ROM, STRETCHING AND STRENGTHENING. HEP INSTRUCTION. 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 ON LIGHT DUTY UP UNTIL ABOUT April THEN HAD SURGERY April. TENTATIVE RETURN TO WORK DATE IS NOT SET BUT HAS FOLLOW UP WITH SURGEON MAY 21. Disability: ON WORKERS COMPENSATION SINCE FEBRUARY 2019. Present symptoms: RIGHT LOW BACK. PATIENT DENIES JANNETTE LE PAIN, NUMBNESS AND TINGLING. RIGHT LE SX'S PRIOR TO SURGERY UNTIL ABOUT April BUT IT HAD GONE AWAY BEFORE SURGERY April. Present since: JANUARY 28 2019. Pain Scale: WORST 9/10, LEAST 0/10. Currently: 0/10. Commenced as a result of: STARTED TO GET PAIN WHILE WORKING. DID NOT HEAR OR FEEL A POP. WAS DOING A LOT OF LIFTING AND STRETCHING. Symptoms at onset: LOW BACK. Worse: TOO MUCH WALKING. Better: SIT DOWN. Disturbed sleep: NO. Previous history/Previous treatment: PATIENT REPORTS HE HAS HAD BACK PROBLEMS SINCE ABOUT 1999 AND SAW A CHIROPRACTOR UNTIL ABOUT 2004. THIS EPISODE TRIED PT IN [place] BEFORE SURGERY. Coughing/sneezing/straining: NEGATIVE. Gait: NORMAL - DISTANCE LIMITED. Difficulty initiating urinatin: NO. Accidents: NO. Unexplained weight loss: NO. Imaging: MRI BEFORE SURGERY - L4 L5 HERNIATED DISC. PMH: UNREMARKABLE. Recent major surgery: NO. PLOF (Prior Level of Function): UNLIMITED - Objective Sitting/Standing Posture: POOR. Lordosis: MILD'LY REDUCED. Lateral shift: NO. Relevant shift: N/A. Active Correction of posture: NE. Other Observations: INDEP GAIT INTO PT WITHOUT ANY AD, WITHOUT LOB AND NO GROSS DEVIATIONS NOTED. Motor deficit: JANNETTE LE'S 5/5 WITH MMT'ING EXCEPT HIPS 4/5. Sensory deficit: JANNETTE LE LIGHT TOUCH SENSATION INTACT AND SYMMETRICAL. ROM deficit: JANNETTE LE'S WFL EXCEPT MILD JANNETTE HIP FLEXOR TIGHTNESS. Reflexes: 2/3 JANNETTE LE'S. Dural Signs: NEGATIVE JANNETTE LE'S. Lumbar mvmt loss: flex - MIN. ext - MOD. R SG - MOD. L SG - MOD. PATIENT DENIES INCREASED PAIN WITH LUMBAR ROM TESTING ALL PLANES. Core strength: POOR. Palpation: INCISION LOOKS GOOD WITHOUT ANY SIGNS OF INFECTION. NO ACUTE LUMBAR TENDERNESS NOW WITH LIGHT PALPATION EVEN OVER INCISION. - Goals Goal 1:: DECREASE C/O OF LBP Goal Time Frame: 4-6 Weeks Goal 2:: IMPROVE BENDING, LIFTING, REACHING, WALKING, SITTING, AND WORK FUNCTION Goal Time Frame: 4-6 Weeks Goal 3:: INSTRUCT IN PROPHYLAXIS Goal Time Frame: 4-6 Weeks - Rehabilitation Potential Rehabilitation Potential: Good - Anticipated Interventions Patient/Client Instruction: Educate patient on: Condition, Plan of Care, Risk Factors, Benefits of Fitness Program For the Purpose of:: To improve self management Therapeutic Exercise to Include: Strength training, Body mechanics, Postural training, Flexibilty training, Active ROM, Dynamic Lumbar Stabilization, Scapular Strength/Stabilization Comment: NO LIFTING > 25 LBS For the Purpose of:: To decrease pain, To increase ROM, To improve muscle performance and motor function, To increase tolerance to activity/condition/position, To improve ability of physical actions for home/community/work/leisure, To improve gait and locomotor functions Cryotherapy (ice pack, ice massage): Yes Thermo therapy (hot pack): Yes For the Purpose of:: To decrease pain, To decrease swelling/inflammation Thank you for the opportunity to evaluate your patient. For Medicare and Medicare HMO plans, please review the plan of care and approve it. It will need to be FAXED BACK to us at [phone] for Medicare purposes. For Medicare only, by signing this I certify the plan of care. Please let me know if there are questions or concerns regarding this plan of care. Physician Signature: Date:
--- NOTE | 2019-06-17 11:13 | HP.PTREVAL ---
EDIE TOLENTINO, It has been my pleasure to treat RONA DICKERSON over the last 7 visits for LUMBAR INTERVERTEBRAL DISC DISPLACEMENT. S/P DISCECTOMY 04/13/19. Please see the progress note below for an update on the physical therapy plan of care! Subjective: PATIENT REPORTS HE HAS BEEN DOING GREAT. NO PAIN OR PROBLEMS. DOING A LOT OF WALKING AND STARTED BACK TO HEP THIS WEEK. NO LIFTING GREATER THAN 40 LBS DUE TO GALLBALDDER SURGERY. SAW BACK SURGEON MAY 21 FOR RE-CHECK AND EVERYTHING LOOKED GOOD AND HE WAS RELEASED TO GO BACK TO WORK Jun BUT THAT NIGHT HE HAD A GALLBLADDER ATTACK AND HAD TO HAVE IT REMOVED THE NEXT DAY. Objective/Function: GREAT PROGRESS TOWARD ALL PT GOALS BUT HE IS RECOVERING FROM BOTH BACK SURGERY AND NOW GALLBLADDER REMOVAL ALSO. ABLE TO EASE BACK INTO PT THIS WEEK AND IS A GOOD CANDIDATE TO CONTINUE PT PER ORIGINAL APPROVAL TO HELP SUCCESSFULLY TRANSITION BACK TO WORK. UPON EXAM TODAY: LUMBAR MVMT LOSS: FLEX - NIL. EXT - MOD. RIGHT SG - MIN. LEFT SG - MIN. PATIENT DENIES PAIN WITH ALL TESTING TODAY AND TOLERATED NEW EX WELL Plan Plan: *NO LIFTING > 40 LBS*. S/P LUMBAR DISCECTOMY APRIL 13 2019 AND GALLBLADDER REMOVAL 05/22/19. CONTINUE PT PER POC FOR. POSTURE CORRECTION/STRENGTHENING, INSTRUCTION IN APPROPRIATE BODY MECHANICS AND ACTIVITY MODIFICATIONS. DLS STARTING WITH A NEUTRAL SPINE PROGRESSING ROM TOLERATED. JANNETTE LE ROM, STRETCHING AND STRENGTHENING. HEP INSTRUCTION. Goals Goal 1:: DECREASE C/O OF LBP Goal Time Frame: 4-6 Weeks Goal Progress: Goal Met Goal 2:: IMPROVE BENDING, LIFTING, REACHING, WALKING, SITTING, AND WORK FUNCTION Goal Time Frame: 4-6 Weeks Goal Progress: Progressing Goal 3:: INSTRUCT IN PROPHYLAXIS Goal Time Frame: 4-6 Weeks Goal Progress: Progressing Anticipated Interventions Patient/Client Instruction: Educate patient on: Condition, Plan of Care, Risk Factors, Benefits of Fitness Program For the Purpose of:: To improve self management Therapeutic Exercise to Include: Strength training, Body mechanics, Postural training, Flexibilty training, Active ROM, Dynamic Lumbar Stabilization, Scapular Strength/Stabilization Comment: NO LIFTING > 25 LBS For the Purpose of:: To decrease pain, To increase ROM, To improve muscle performance and motor function, To increase tolerance to activity/condition/position, To improve ability of physical actions for home/community/work/leisure, To improve gait and locomotor functions Cryotherapy (ice pack, ice massage): Yes Thermo therapy (hot pack): Yes For the Purpose of:: To decrease pain, To decrease swelling/inflammation Please do not hesitate to contact me at [phone] by phone or if you have questions or concerns regarding this new plan of care! Sincerely, Elenita Garber, PT, Cert MDT
--- NOTE | 2019-06-25 13:49 | HP.PTDCSUM ---
HP - PT D/C Summary It has been my pleasure to treat RONA DICKERSON under orders from EDIE TOLENTINO, for the diagnosis of LUMBAR INTERVERTEBRAL DISC DISPLACEMENT. S/P DISCECTOMY 04/13/19 for a total of 11 visit(s). Discharge Date: 06/25/19 Please see the following information for a summary of their discharge status. - Subjective Subjective: PATIENT REPORTS HE IS GOING BACK TO WORK Jul AND SEEING HIS BACK SURGEON BEFORE THAT Jun. STATES HE HAS BEEN MOVING STUFF AROUND AT HOME SIMILAR TO WHAT HE DOES AT WORK AND HASN'T HAD ANY PROBLEMS. PATIENT DENIES ANY PAIN, NUMBNESS OR TINGLING. - Overall Improvement % Improvement: 100 - Objective Objective/Function: ALL GOALS MET. PATIENT COMMUNICATES AND DEMONSTRATES GOOD BODY MECHANICS FOR BACK SAFETY. UPON EXAM TODAY: LUMBAR MVMT LOSS: FLEX - NIL. EXT - MOD. RIGHT SG - MIN. LEFT SG - MIN. PATIENT DENIES PAIN WITH ALL TESTING TODAY. - Goals Goal 1:: DECREASE C/O OF LBP Goal Progress: Goal Met Goal 2:: IMPROVE BENDING, LIFTING, REACHING, WALKING, SITTING, AND WORK FUNCTION Goal Progress: Goal Met Goal 3:: INSTRUCT IN PROPHYLAXIS Goal Progress: Goal Met - Plan Plan: D/C TO INDEP HEP - D/C Information If there are questions or concerns regarding this patient's physical therapy, please feel free to call me at [phone]. Thank you for the referral of this patient. Sincerely, Elenita Garber, PT, Cert MDT
== END 2019-06-25 19:00 | disposition home or self-care (01) ==
LOC: PT 13:00
PROVIDERS: Family Provider Family Medicine; PCP Family Medicine
DX: M51.27 Other intervertebral disc displacement, lumbosacral region (principal)
CPT/HCPCS: 97110; 97161; 97530

== ENCOUNTER 2021-02-15 10:25 | Emergency (ER) | payer OTHER, SELFPAY ==
[2021-02-15 10:26] VITALS: BP 137/94; PULSE 77; RESP 16; TEMP 36.6; O2SAT 98; BMI 36.3
--- NOTE | 2021-02-15 10:35 | CT_ITS ---
STUDY: CT BRAIN WITHOUT CONTRAST REASON FOR EXAM: Male, 50 years old. Head trauma RADIATION DOSAGE (If Supplied By Facility): CTDIvol = ( 44.99 ) mGy, DLP = ( 779.24 ) mGycm TECHNIQUE: Transaxial CT imaging of the brain was performed without administration of intravenous contrast material. Individualized dose optimization techniques were used for this CT. COMPARISON: No relevant priors. FINDINGS: Normal soft tissue structures. Normal calvarium. Normal size ventricles and extra-axial spaces for the patient''s age. Normal white matter tracts of the cerebral hemispheres. Normal basal ganglia and thalami. Normal brainstem. Normal cerebellum. There is no intracranial hemorrhage. There are no findings of an acute ischemic infarction. Normal visualized paranasal sinuses. CT/Brain/Head without Contrast IMPRESSION: Normal unenhanced CT scan of the brain. Electronically Signed: Lucas Rick MD at 11:29 EDT , Service support ,
--- NOTE | 2021-02-15 10:35 | ED.VIS.GEN ---
History of Present Illness Chief Complaint: Head Injury Informant: Patient Onset: Today Context: Sudden Onset Timing: Continuous Current Severity: Mild Maximum Severity: Moderate Narrative: The patient is a 50-year-old male presents to the emergency department with head injury. Patient was at work today. He states he was trying to maneuver a door with a rope. He states the rope broke and he fell backwards. He struck the back of his head. He is unsure if he lost consciousness, but thinks that he may have been dazed and cannot definitively call the events. He went to urgent care and was sent here for further evaluation. He is not on anticoagulants. He denies any weakness, numbness, tingling. He denies any visual change. He states he is otherwise been in his normal state of health. Prior similar symptoms: No Recent Illness/Hospitalization: No Past Medical History - Allergies and Home Meds Allergies/Adverse Reactions: Allergies shellfish derived Allergy (Verified 02/15/21 10:30) Anaphylaxis Primary Care Physician: [facility] [GROUP OF PHYSICIANS] - Prior records reviewed: Yes Past Medical History: None Surgical History: noncontributory, - - Back: L4-L5 about 6 weeks ago Smoking Status: Never smoker - Family History Maternal Family History: Family History (Last Reviewed 02/09/21 @ 09:10 by Radha Eastman RN) Other Cancer Diabetes Family History: Reports: No pertinent history Review of Systems General: Denies: Chills, Fever, Sweats Eyes: Denies: Visual changes - bilaterally, Diplopia ENT: Denies: Rhinorrhea, Sore throat Cardiovascular: Denies: Chest pain, Palpitations Respiratory: Denies: Dyspnea, Cough, Dyspnea on exertion Gastrointestinal: Denies: Abdominal pain, Nausea, Vomiting, Diarrhea, Melena, Hematochezia Genitourinary: Denies: Dysuria, Hematuria, Frequency Musculoskeletal: Denies: Back pain, Extremity Pain Skin: Denies: Rash, Wounds Neurological: Denies: Headache, Weakness, Numbness Physical Exam Vital Signs/Narrative: Vital Signs Temp Pulse Resp BP Pulse Ox 02/15/21 10:26 97.8 F 77 16 137/94 H 98 Inital Vital Signs reviewed: Yes General: Well nourished, Well developed, No Acute Distress Head: Normocephalic, Trauma - Superficial abrasion on the posterior occipital area. No step-off or deformity. Eyes: Perrl, EOMI ENT: Moist mucous membranes, No rhinorrhea Neck: Supple, Nontender Cardiovascular: Regular rate, Regular rhythm, No murmurs Respiratory: No distress, CTA bilaterally, Chest nontender Abdomen: Soft, Nontender, Nondistended, Normal bowel sounds Back: Nontender, Normal Inspection Extremities: Nontender, No edema Skin: Normal color, No rash Neurological: Alert, Oriented x3, Cranial nerves II-XII grossly intact, Normal Strength, Normal Sensation Psychological: Normal affect, Normal Mood Diagnostic/Tx/Re-eval Clinical Impression(s) from Imaging Studies Brain CT 02/15/21 10:35 IMPRESSION: Normal unenhanced CT scan of the brain. Electronically Signed: Lucas Rick MD at 11:29 EDT , Service support , - Medical Decision Making Patient presents with head injury with questionable loss of consciousness. His examination is reassuring. However, I did obtain CT of his head given the reported loss of consciousness. This was unremarkable. Patient was observed and has no further symptoms. At this point, I do feel that he safe for outpatient follow-up. He is comfortable with this plan of care. Impression 1. Concussion without loss of consciousness ED Disposition - Plan for ED Patient: Instructions: ED Concussion Referrals: [facility] [place] [GROUP OF PHYSICIANS] -
[2021-02-15 12:30] VITALS: RESP 17
== END 2021-02-15 12:30 | disposition home or self-care (01) ==
LOC: ED 11:15
PROVIDERS: Emergency Provider Emergency Medicine; PCP Family Medicine
DX: S06.0X0A Concussion without loss of consciousness, initial encounter (principal); W18.30XA Fall on same level, unspecified, initial encounter; Y93.89 Activity, other specified; Y92.89 Other specified places as the place of occurrence of the external cause; Y99.0 Civilian activity done for income or pay
CPT/HCPCS: 70450; 99282

== ENCOUNTER 2022-06-15 09:09 | Emergency (ER) | payer OTHER, SELFPAY ==
[2022-06-15 09:12] VITALS: BP 141/84; PULSE 82; RESP 17; TEMP 36.4; O2SAT 98; BMI 37.4
--- NOTE | 2022-06-15 09:26 | RAD_ITS ---
STUDY: X-RAY - LEFT SHOULDER REASON FOR EXAM: Male, 51 years old. shoulder pain TECHNIQUE: 4 view(s) of the shoulder. COMPARISON: None. FINDINGS: Normal glenohumeral articulation. Normal acromioclavicular joint. Normal acromion. Normal humeral head and visualized proximal humerus. The soft tissue structures are unremarkable. Normal visualized pulmonary apex. RAD/Shoulder min 2 Views IMPRESSION: Normal x-ray examination of the shoulder. Electronically Signed: Madhav Alvarenga MD at 9:50 EDT ,
--- NOTE | 2022-06-15 09:26 | EX.ED.UPPERE ---
HPI <MARCELLUS Morocho - Last Filed: 06/15/22 09:58> History of Present Illness Chief Complaint: Upper Extremity Injury Narrative Narrative: 51-year-old [id number] male presents with 2-week history of left shoulder pain. He noticed some soreness in the left anterior shoulder throughout the day and then at night when he rolls over on that side or pushes himself up he has sharper pain in the shoulder. He has no chest pain shortness of breath nausea or vomiting. Pain is not exertional. There is no trauma, weakness, numbness or tingling. He went to urgent care earlier this month and tried a medrol dose eric and went back today and they sent him to the ED. He has not been taking any medications for this. He has an orthopedic appointment coming up this week. PFSH <MARCELLUS Morocho - Last Filed: 06/15/22 09:58> [facility] Medical History (Updated 06/15/22 @ 09:56 by MARCELLUS Morocho) Back pain Chronic cholecystitis Home Medications naproxen 500 mg tablet 500 mg PO BID #20 tabs 06/15/22 [Rx Last Taken Unknown] Allergy/AdvReac Type Severity Reaction Status Date / Time shellfish derived Allergy Anaphylaxis Verified 06/15/22 09:11 Family History Other Cancer Diabetes Surgical History History of back surgery History of carpal tunnel release History of laparoscopic cholecystectomy (~05/2019) Social History Smoking Status: Never smoker alcohol intake: current ROS <MARCELLUS Morocho - Last Filed: 06/15/22 09:58> ROS ED ROS Narrative Constitutional: Negative for fever, chills, malaise. Eyes: Negative for visual change. ENT: Negative for sore throat, rhinorrhea. CVS: Negative for palpitations, chest pain, syncope. Respiratory: Negative for shortness of breath, cough. GI: Negative for abdominal pain, nausea, vomiting. : Negative for dysuria, hematuria or frequency. Neuro: Negative for headache, motor/sensory dysfunction. Skin: Negative for rash, abscess, or wound. Musc: Positive for shoulder pain. Negative for swelling, trauma. Heme: Negative for easy bruising, bleeding, lymphadenopathy. EXAM <MARCELLUS Morocho - Last Filed: 06/15/22 09:58> Physical Exam Narrative Exam Narrative: CONST: Patient sitting in no acute distress. EYES: Normal inspection. NECK: Normal inspection. RESP: No respiratory distress, CTAB. CVS: Regular rate and rhythm, no murmur, no gallop. Back: Normal inspection, no midline spinal tenderness or step offs. SKIN: Color normal, no rash, warm, dry, intact. 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 Normal sensation, 2+ radial pulses. NEURO: Oriented x4. PSYCH: Normal affect. Const Vital Signs: 06/15/22 09:12 Temperature 97.5 F L Temperature Source Temporal Pulse Rate 82 Respiratory Rate 17 Blood Pressure 141/84 H Blood Pressure Mean 103 Pulse Ox 98 Oxygen Delivery Method Room Air MDM <MARCELLUS Morocho - Last Filed: 06/15/22 09:58> [facility] Narrative Medical decision making narrative: Patient presents with 2-week history of left shoulder pain. Its aching during the day and becomes sharp when he rolls on that side at night. There is no chest pain or dyspnea and it is not exertional. Does not at all seem consistent with ACS. He has no risk factors for PE/DVT. He has slight reproducible tenderness over the bicipital tendon, full range of motion, neurovascularly intact. ED attending interpretation of the left shoulder x-ray shows no fracture or dislocation. Patient has already tried a Medrol Dosepak. I will prescribe naproxen and he has orthopedic follow-up scheduled later this week. He was discharged in stable condition. <Dr. Jean Claude Agee DO - Last Filed: 06/15/22 10:02> [facility] Narrative Medical decision making narrative: This patient was seen with a PA/VALIDATION ARCHITECT Individually assessed they patient including history and physical. I have reviewed everything on the chart that is available and agree with the documentation provided by the PA/VALIDATION ARCHITECT including discussion about the assessment, treatment plan, discussion, and return precautions. Patient with intermittent left shoulder pain. This does appear to be reproducible. Most likely musculoskeletal. Does not appear of any cardiac component to it. Patient has orthopedic follow-up this week with [facility] in [place]. Patient presents with 2-week history of left shoulder pain. Its aching during the day and becomes sharp when he rolls on that side at night. There is no chest pain or dyspnea and it is not exertional. Does not at all seem consistent with ACS. He has no risk factors for PE/DVT. He has slight reproducible tenderness over the bicipital tendon, full range of motion, neurovascularly intact. ED attending interpretation of the left shoulder x-ray shows no fracture or dislocation. Patient has already tried a Medrol Dosepak. I will prescribe naproxen and he has orthopedic follow-up scheduled later this week. He was discharged in stable condition. Discharge Plan Triage Chief Complaint: Upper Extremity Injury ED Midlevel Provider: Theresa Quevedo ED Provider: Jean Claude Agee Dx/Rx/DC Orders Clinical Impression: Acute pain of left shoulder Instructions: ED Shoulder Pain, Uncertain Cause Prescriptions: New naproxen 500 mg tablet 500 mg PO BID Qty: 20 0RF Primary Care Provider: Adan Stewart Referrals: Adan Stewart DO [Primary Care Provider] - Disposition Disposition: Home, Self Care
== END 2022-06-15 10:09 | disposition home or self-care (01) ==
PROVIDERS: Emergency Provider Student in an Organized Health Care Education/Training Program; PCP Student in an Organized Health Care Education/Training Program; Visit Provider Student in an Organized Health Care Education/Training Program
DX: M25.512 Pain in left shoulder (principal)
CPT/HCPCS: 73030; 99282

== ENCOUNTER 2023-08-18 17:32 | Emergency (ER) | payer OTHER, SELFPAY ==
[2023-08-18 17:32] VITALS: BP 141/99; PULSE 87; RESP 16; TEMP 36.4; O2SAT 95; BMI 37.3
--- NOTE | 2023-08-18 17:50 | CT_ITS ---
STUDY: CT SOFT TISSUE NECK WITH CONTRAST REASON FOR EXAM: Male, 52 years old. right neck mass RADIATION DOSAGE (If Supplied By Facility): CTDIvol = ( 17.47 ) mGy, DLP = ( 523.84 ) mGycm TECHNIQUE: The patient was scanned in a multi-detector CT scanner. High resolution transaxial imaging was performed following intravenous administration of IV 100mL Isovue-370. Sagittal and coronal images were reconstructed. Individualized dose optimization techniques were used for this CT. COMPARISON: None. FINDINGS: Normal bilateral parotid glands. Normal bilateral grocery supervisor spaces. Normal bilateral parapharyngeal spaces. Normal bilateral carotid spaces. Normal bilateral sublingual and submandibular glands and spaces. Normal visualized nasopharynx. Normal retropharyngeal space. Normal perivertebral space. Normal visualized bilateral faucial tonsils. 1.5 x 2.5 cm soft tissue mass of the right side of the oropharynx were squamous cell carcinoma. Associated right jugular and posterior triangle lymphadenopathy with the largest lymph node a right jugular lymph node posterior to the right sternocleidomastoid muscle at the level of the floor the mouth measuring 5.5 x 3.3 cm. There is no abnormal contrast enhancement. Normal epiglottis, bilateral vallecula and hypopharynx. The pre-epiglottic and paraglottic adipose spaces are normal. Normal visualized bilateral piriform sinuses, aryepiglottic folds, vocal cords, and arytenoid-cricoid articulations. Normal subglottic trachea. Normal bilateral lobes of the thyroid gland. Normal visualized pulmonary apices. Normal visualized paranasal sinuses. Normal visualized cervical spine. 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 Electronically Signed: Madhav Alvarenga MD at 19:07 EDT ,
[2023-08-18 18:09] LABS: Absolute Neutrophil Count 5.6 X10^3/uL (2.0-7.7); Basophil# 0.06 X10^3/uL; Basophil% 0.6 % (0-1); Eosinophil# 0.36 X10^3/uL; Eosinophils% 3.7 % (0-5); Hematocrit 46.5 % (40-54); Hemoglobin 15.6 g/dL (13.0-16.5); Mean Corp Hgb Conc 33.5 g/dL (32-36); Mean Corpuscular Hgb 30.5 pg (27.0-32.0); Mean Corpuscular Volume 90.8 fL (80-94); Mean Platelet Vol. 8.7 fl (6.2-12.0); Monocyte% 10.4 % (0-10); NRBC Flagged by Analyzer 0 % (0-5); Neutrophil # 5.57 X10^3/uL (2.7-7.7); Neutrophil % 57.8 % (47-70); Platelet Count 234 K/mm3 (150-450); RBC Distribution Width CV 12.3 % (11.6-14.6); RBC Distribution Width SD 40.7 fl (35.1-43.9); Red Blood Count 5.12 M/mm3 (4.6-6.2); White Blood Count 9.6 K/mm3 (4.4-11.0)
[2023-08-18] MEDS: 0.9% Normal Saline (500mL Bag) 500 ML 1000 ML IV (18:17)
[2023-08-18] MEDS: DiphenhydrAMINE 50 MG/ML Syringe 25 MG IV (18:17)
[2023-08-18] MEDS: MethylPREDNISolone 125 MG/2 ML Vial 60 MG IV (18:18)
[2023-08-18 18:26] LABS: ALB/GLOB Ratio 1.2 RATIO (0.9-2.4); AST(SGOT) 26 U/L (15-37); Alanine Aminotransfer ALT/SGPT 40 U/L (16-61); Alkaline Phosphatase 62 U/L (45-117); Anion Gap 7 (5-15); BUN 16 mg/dL (7-18); Calcium,Total 9.4 mg/dL (8.5-10.1); Chloride 108 mmol/L (98-107); Creatinine, Serum 0.76 mg/dL (0.70-1.30); EST Glomerular Filtration Rate 114 mL/min (>60); Est Glom Filt Rate - Afr Amer 138 mL/min (>60); Globulin 3.3 g/dL (2.2-4.2); Glucose 90 mg/dL (74-106); Potassium 3.6 mmol/L (3.5-5.1); Protein, Total 7.3 g/dL (6.4-8.2); Sodium Level 140 mmol/L (136-145)
--- NOTE | 2023-08-18 18:28 | EDS_ITS ---
HPI History of Present Illness Chief Complaint: Edema Informant: patient and spouse/S.O. Narrative Narrative: Patient presents with swelling in the right side of his neck. Patient first noticed this on maybe the or 11 July. It was smaller. It has slowly grown but not accelerated. It does hurt a little bit. But he denies to me any problems swallowing or breathing whatsoever. He states he is eating totally normally. He does not feel sick. He has never had fevers or chills. He was seen at [facility] and they checked for mumps and strep which were negative. He then followed up with the dentist about 1 week ago. He did x-rays of the teeth and did not she see any change. The patient has been on Augmentin for the last week and has not noticed any change. He came in this evening because his significant other said they have to get a solution to what this is. Patient is on no medicine has no medical history. He has not had any weight gain or weight loss. No history of cancers or tumors. No other areas of swelling. [facility] Medical History Back pain Chronic cholecystitis Dental caries Home Medications naproxen 500 mg tablet 500 mg PO BID PRN 07/31/23 [History Last Taken Unknown] hydrocodone-acetaminophen 5-325mg 5mg-325mg 1 tab PO Q6H PRN PRN Pain 3 days #12 TABLETS 08/18/23 [Rx Last Taken Unknown] Allergy/AdvReac Type Severity Reaction Status Date / Time shellfish derived Allergy Anaphylaxis Verified 08/18/23 17:32 Family History Other Cancer Diabetes Surgical History History of back surgery History of carpal tunnel release History of laparoscopic cholecystectomy (~05/2019) Social History Smoking Status: Never smoker alcohol intake: current ROS ROS ED ROS Narrative A complete review of systems was performed and is negative except as documented in the history of present illness. Some specific details below. Constitutional: No recent fevers or chills. No malaise. He does not feel ill generally. EYE: No visual complaints or pain. ENT: No difficulty swallowing. See history of present illness. CV: No chest pain or palpitations. Respiratory: No dyspnea. No hemoptysis. No difficulty taking breaths. GI: No nausea vomiting or change in appetite : No frequency dysuria or hematuria. No change in amount. Musculoskeletal: No recent trauma. No pains. Skin: No rash. Nondiaphoretic. There is a swollen area on his right neck but no skin changes or rash. Neuro: No weakness or numbness. Endocrine: No polyuria or polydipsia. EXAM Physical Exam Narrative Exam Narrative: General: Patient is awake alert no acute distress carries on normal conversation is nontoxic. HEENT: No sinus tenderness. He has some dental fillings but no tenderness. No intraoral lesions. External canal and tympanic membrane look normal. Neck: Patient has a firm mass posterior to the angle of the mandible on the right. It is approximately 7 or 8 cm around. It is firm and not at all fluctuant. It is slightly mobile. Anterior to this and completely distinct on the lateral aspect of the mandible is a smaller 2 cm very mobile firm area. Neither 1 of these are notably tender. They are not at all red. There are no skin changes over them. There is no bruit heard. Lungs are clear bilaterally and saturations are normal at 95% on room air showing no hypoxia. Heart is regular. Tones are not muffled. I do not feel any lymphadenopathy supra or infraclavicular or other areas of his neck. Abdomen is soft completely nontender. Mild obesity. Extremities show no lesions or skin changes. No pallor. Const Vital Signs: 08/18/23 17:32 08/18/23 17:32 08/18/23 19:37 Temperature 97.5 F L 97.3 F L Temperature Source Temporal Temporal Pulse Rate 87 84 Respiratory Rate 16 16 Respiratory Effort Normal Respiratory Pattern Normal Blood Pressure 141/99 H 84/57 L Blood Pressure Mean 113 66 Pulse Ox 95 96 Oxygen Delivery Method Room Air Room Air 08/18/23 19:44 Temperature 97.3 F L Temperature Source Temporal Pulse Rate 84 Respiratory Rate 16 Respiratory Effort Respiratory Pattern Blood Pressure 121/86 H Blood Pressure Mean 97 Pulse Ox 96 Oxygen Delivery Method Room Air MDM MDM MDM Narrative Medical decision making narrative: Patient CBC shows no acute process. Patient's electrolytes are normal other than minimal elevation of chloride. Patient's liver function test are normal. My independent interpretation of CT shows a large mass along the right neck. Final reading shows findings that are concerning for squamous cell carcinoma. This would be originating from the right side of the oropharynx with some metast atic right jugular and posterior triangle lymphadenopathy which is somewhat what we are feeling. I discussed the case with oncologist, Dr. Galdamez. He will get the patient in for close follow-up. He will need likely PET scan as well as ENT follow-up. I explained this to the patient and his . I explained that they need to call the office in the morning. Dr. Galdamez will notify his office to expect the call. I will give him something for pain. Of note, we gave the patient dose of Benadryl and prednisolone here along with some fluids prior to the CT. He does have a history of shellfish allergy mostly to crab legs. But we wanted to reduce the chance of having any reaction especially since he already had swelling on his neck. He has not shown any indication of reaction. Lab Data Attestation: I reviewed the patient's lab results. Labs: Laboratory Results - last 24 hr 08/18/23 18:04 WBC 9.6 RBC 5.12 Hgb 15.6 Hct 46.5 MCV 90.8 MCH 30.5 MCHC 33.5 RDW Std Deviation 40.7 RDW Coeff of [place] 12.3 Plt Count 234 MPV 8.7 Immature Gran % (Auto) 0.500 Neut % (Auto) 57.8 Lymph % (Auto) 27.0 [place] % (Auto) 10.4 H Eos % (Auto) 3.7 Baso % (Auto) 0.6 Absolute Neuts (auto) 5.6 Absolute Lymphs (auto) 2.60 Nucleated RBC % 0 Sodium 140 Potassium 3.6 Chloride 108 H Carbon Dioxide 25.0 Anion Gap 7 BUN 16 Creatinine 0.76 Estim Creat Clear Calc 102.60 Est GFR (MDRD) Af Amer 138 Est GFR (MDRD) Non-Af 114 BUN/Creatinine Ratio 21.0 H Glucose 90 Calcium 9.4 Total Bilirubin 0.40 AST 26 ALT 40 Alkaline Phosphatase 62 Total Protein 7.3 Albumin 4.0 Globulin 3.3 Albumin/Globulin Ratio 1.2 Radiography Diagnostic Testing: Clinical Impression(s) from Imaging Studies Soft Tissue Neck CT 10/16/23 17:50 IMPRESSION: 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 Electronically Signed: Madhav Alvarenga MD at 19:07 EDT , Management Discussion w/another healthcare provider: Manager Of Financial Planning Discharge Plan Triage Chief Complaint: Edema ED Provider: Mario Fonseca Dx/Rx/DC Orders Clinical Impression: Mass of right side of neck Prescriptions: New hydrocodone-acetaminophen [hydrocodone-acetaminophen] 5-325 mg tablet 1 tab PO Q6H PRN PRN (Reason: Pain) 3 Days Qty: 12 0RF No Action naproxen 500 mg tablet 500 mg PO BID PRN Primary Care Provider: Adan Stewart Referrals: Hernan Galdamez MD [Med Staff - Active Staff] - As soon as possible Adan Stewart DO [Primary Care Provider] - Activity Restrictions/Additional Instructions: CAT scan shows a mass in the right side of the neck that is a possible cancer. Please call physician as above in the morning to arrange close follow-up. If you have problems swallowing, breathing, worsening pain or other concerns please return. Disposition Disposition: Home, Self Care
[2023-08-18 19:37] VITALS: BP 84/57; PULSE 84; RESP 16; TEMP 36.3; O2SAT 96
[2023-08-18 19:44] VITALS: BP 121/86; PULSE 84; RESP 16; TEMP 36.3; O2SAT 96
== END 2023-08-18 21:12 | disposition home or self-care (01) ==
PROVIDERS: Emergency Provider Emergency Medicine; PCP Student in an Organized Health Care Education/Training Program; Visit Provider Emergency Medicine
DX: R22.1 Localized swelling, mass and lump, neck (principal)
CPT/HCPCS: 70491; 80053; 85025; 96374; 96375; 99283; J7040; Q9967

== ENCOUNTER → 2023-08-26 | Outpatient (CLI) | payer OTHER, SELFPAY ==
--- NOTE | 2023-08-26 | IMM_PTH ---
PATIENT: RONA DICKERSON SHERRI LOC: [facility] U#:[id number] AGE/SX: 52/M ROOM: RE08/26/[address]: Dr. Shahid Salinas MD : 1970 BED: DIS: 08/26/2023 SPEC #: [id number] RECD: 08/27/23 13:45 STATUS: SOURomero REQ #: [id number] KATHLEEN: 08/26/23 00:[address]: Shahid Salinas DEPT: IMMUNOHISTOCHEMISTRY RECD BY: Melina Sanchez ENTERED: 08/27/23 13:46 SP TYPE: IMMUNO OTHR DR: Dr. Adan Stewart, DO Tissues: Neck, NOS Procedures: BCL-2 (add) BCL-6 (add) CD10 (add) CD138 (add) CD15 (add) CD20 (add) CD23 (add) CD3 (add) CD30 (add) CD43 (add) CD45 (add) CD5 (add) CD79A (add) CK5-6 (add) CK7 (add) CYCLIN (add) PRASANNA (add) KAPPA (add) LAMBDA (add) MPO (add) P53 (add) Vimentin (add) MUM1 (add) C-MYC (add) Pankeratin (initial) P40 (add) PHYSICIAN & [place] [id number] SPECIMEN INFORMATION: Tissue Source: Right neck mass Clinical Info: Right neck mass Specimen Number: [id number] CPT code: 70083, 56912 x25 METHODOLOGY: Deparaffinized sections of prefer/formalin-fixed tissue or PAP/DQ stained slides are incubated with monoclonal/polyclonal antibodies/oligonucleotide probes. Localization is made via biotin free immunoperoxidase method. Appropriate controls are performed and reacted as expected. Results on target cell population are indicated in the following table: RESULTS: ANTIBODY / CLONE RESULT AE1-3 (AE1/AE3/PCK26) negative CK7 (OV-TL12/30) negative CD45 (RP2/18) positive MPO (polyclonal) negative Vimentin (V9) negative CK5-6 (D5 & 1684) negative P40 (BC28) negative PRASANNA (E29) negative P53 (DO-7) negative, null pattern CD3 (PS1) positive, small cells only CD5 (SP10) positive, small cells only CD10 (56C6) negative CD15 (MMA) negative CD20 (L26) positive CD23 (1B12) negative CD30 (Chay-H2) positive CD43 (L60) positive CD79a (11E3) positive CD138 (B-A38) negative BCL-2 (bcl-2/100/D5) positive BCL-6 (XW927M/A8) negative Cyclin D1/BCL-1 (SP4) negative [place] (polyclonal) negative Lambda (polyclonal) negative MUM1 (MRQ-43) positive, weak C-MYC (Y69) negative These tests were developed and their performance characteristics determined by [facility]. They may not have been cleared or approved by the U.S. Food and Drug Administration. The FDA has determined that such clearance or approval is not necessary. The above immunohistochemical/dualISH markers are ordered and reviewed by the Pathologist. INTERPRETATION: Fine needle aspiration, right neck mass (smears and cell block): Positive for malignant cells. 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 See comment. AM:elissa 09/01/2023 Comment: Clinical correlation is necessary. Case has been reviewed in consultation with Dr. Suarez who concurs with the above diagnosis. IDC:SJ
--- NOTE | 2023-08-26 09:30 | ASPOS_PTH ---
PATIENT: RONA DICKERSON SHERRI LOC: [facility] U#:[id number] AGE/SX: 52/M ROOM: RE08/26/[address]: Dr. Shahid Salinas MD : 1970 BED: DIS: 08/26/2023 SPEC #: [id number] RECD: 08/26/23 10:47 STATUS: NIK REQ #: [id number] KATHLEEN: 08/26/23 09:[address]: Shahid Salinas DEPT: CYTOLOGY RECD BY: Meghana Solis ENTERED: 08/26/23 10:48 SP TYPE: ASP HERE OTHR DR: Dr. Aadn Stewart, DO Tissues: Neck, NOS Procedures: Surgery Specimen Level IV Cytology Other Fine Needle Asp on Site HEADER OPERATION: Fine needle aspiration right neck mass PRE-OP DIAGNOSIS: Right neck mass TISSUE SUBMITTED: Right neck mass DIAGNOSIS CYTOLOGY Fine needle aspiration, right neck mass (smears and cell block): Positive for malignant cells. Note: Immunohistochemistry ([id number]) favors a large B-cell lymphoma of non-centrocytic origin. Flow cytometry analysis was canceled due to low cell yield and viability. See comment. AM:elissa 09/01/2023 COMMENT A fine needle aspiration was performed and the specimen is evaluated at the time of FNA by Dr. Espitia. Immediate Evaluation = Positive for malignant cells. An incisional or excisional biopsy is recommended for definite classification. Case has been reviewed in consultation with Dr. Suarez who concurs with the above diagnosis. IDC:SJ CYTOLOGY STUDY Slides are reviewed. CYTOLOGY GROSS Received is 0.5 ml of reddish fluid labeled with the patient's name, and designated right neck mass. Four imprints and three paps are made from the submitted fluid and the rest is added to CytoLyt for cell block preparation. Submitted for cytology study. / AM:elissa 08/26/2023 TC:0 CPT: 68300, 38917, 51131, 91726
== END | disposition home or self-care (01) ==
LOC: LAB 09:19
PROVIDERS: PCP Student in an Organized Health Care Education/Training Program; Referring Provider Otolaryngology; Visit Provider Otolaryngology
DX: R22.1 Localized swelling, mass and lump, neck (principal)
CPT/HCPCS: 10021; 88161; 88305; 88341; 88342

== ENCOUNTER 2023-09-08 09:22 | Day surgery (SDC) | payer OTHER, SELFPAY ==
--- NOTE | 2023-09-08 | IMM_PTH ---
PATIENT: RONA DICKERSON SHERRI LOC: [facility] U#:[id number] AGE/SX: 52/M ROOM: RE09/08/[address]: Dr. Shahid Salinas MD : 1970 BED: DIS: 09/08/2023 SPEC #: [id number] RECD: 09/09/23 12:50 STATUS: NIK REQ #: [id number] KATHLEEN: 09/08/23 00:[address]: Shahid Salinas DEPT: IMMUNOHISTOCHEMISTRY RECD BY: Usman Ross ENTERED: 09/09/23 12:53 SP TYPE: IMMUNO OTHR DR: Dr. Adan Stewart DO Tissues: Lymph node, NOS Procedures: BCL-2 (add) BCL-6 (add) CD10 (add) CD20 (add) CD23 (add) CD3 (add) CD30 (add) CD43 (add) CD45 (add) CD5 (add) CD79A (add) CK8 (add) CYCLIN (add) KI-67 (add) MUM1 (add) C-MYC (add) Pankeratin (initial) PHYSICIAN & [place] [id number] SPECIMEN INFORMATION: Tissue Source: Right neck mass incisional biopsy Clinical Info: Right neck mass Specimen Number: [id number] CPT code: 73856, 82878 x16 METHODOLOGY: Deparaffinized sections of prefer/formalin-fixed tissue or PAP/DQ stained slides are incubated with monoclonal/polyclonal antibodies/oligonucleotide probes. Localization is made via biotin free immunoperoxidase method. Appropriate controls are performed and reacted as expected. Results on target cell population are indicated in the following table: RESULTS: ANTIBODY / CLONE RESULT AE1-3 (AE1/AE3/PCK26) negative CK8 (67bakmM73) negative CD3 (PS1) negative CD5 (SP10) negative CD20 (L26) positive CD43 (L60) positive CD45 (RP2/18) positive CD79a (11E3) positive CD10 (56C6) negative CD23 (1B12) negative CD30 (Chay-H2) positive BCL-2 (bcl-2/100/D5) positive BCL-6 (BX703F/A8) positive Cyclin D1/BCL-1 (SP4) negative MUM1 (MRQ-43) positive, weak and focal C-MYC (Y69) negative Ki-67 (30-9) positive, high 90% These tests were developed and their performance characteristics determined by [facility]. They may not have been cleared or approved by the U.S. Food and Drug Administration. The FDA has determined that such clearance or approval is not necessary. The above immunohistochemical/dualISH markers are ordered and reviewed by the Pathologist. INTERPRETATION: Right neck mas, incisional biopsy: Diffuse large B-cell Non-Hodgkin lymphoma, non-germinal center cell type. SJ:rené 09/11/2023
--- NOTE | 2023-09-08 | LYMN_PTH ---
PATIENT: RONA DICKERSON SHERRI [place] [facility] [place][id number] AGE/SX: 52/M ROOM: RE09/08/[address]: Dr. Shahid Salinas MD : 1970 BED: DIS: 09/08/2023 SPEC #: [id number] RECD: 09/08/23 13:08 STATUS: NIK SILVANO #: [id number] KATHLEEN: 09/08/23 00:[address]: Shahid Salinas DEPT: SURGICAL PATHOLOGY RECD BY: Usman Ross ENTERED: 09/09/23 07:43 SP TYPE: LYMPH NODE OTHR DR: Dr. Adan Stewart DO Tissues: LYMPH NODE BIOPSY Procedures: Special Stain Group II Surgery Specimen Level IV Imprint (control) HEADER OPERATION: Excisional biopsy, right neck mass PRE-OP DIAGNOSIS: Right neck mass TISSUE SUBMITTED: Right neck mass incisional biopsy MICROSCOPIC DIAGNOSIS Right neck mass, incisional biopsy: Diffuse large B-cell non-hodgkin lymphoma, non-germinal center cell type (non-centrocytic type). See comment. COMMENT Touch imprints evaluation by Dr. Suarez: Right neck mass: Atypical lymphocytes are noted. More tissue is requested Additional tissue, right neck mass: Atypical lymphocytes are noted Immunohistochemistry ([id number]) supports the above diagnosis. IHC profile is negative for metastatic carcinoma. Flow cytometry studies from [facility] cancelled due to very low viablity MICROSCOPIC DESCRIPTION Slides are reviewed. GROSS DESCRIPTION Received fresh for lymphoma protocol is one container labeled with the patient name and designated right neck mass. The specimen consists of one irregular fragment of light paez soft tissue that measures 0.6 x 3 x 0.1 cm. two touch imprints are prepared. Additional tissue is requested. Also received in two containers (additional specimen) are multiple fragments of paez soft tissue that in aggregate measure 1 x 0.5 x 0.5 cm. Portion of tissue is submitted for flow cytometry studies. Two more touch imprints are prepared. The specimen is totally submitted in one cassette. /SJ:rené 09/09/23 TC:0 CPT: 44275, 94045, 89840 ADDENDUM ADDENDUM ADDENDUM ADDENDUM ADDENDUM ADDENDUM ADDENDUM ADDENDUM ADDENDUM ADDENDUM ADDENDUM ADDENDUM ADDENDUM ADDENDUM ADDENDUM ADDENDUM ADDENDUM ADDENDUM ADDENDUM ADDENDUM ADDENDUM ADDENDUM ADDENDUM ADDENDUM ADDENDUM ADDENDUM ADDENDUM ADDENDUM ADDENDUM ADDENDUM ADDENDUM ADDENDUM ADDENDUM ADDENDUM ADDENDUM 10/08/2023 09:53 ADDENDUM 10/08/2023 09:53 ADDENDUM 10/08/2023 09:53 ADDENDUM 10/08/2023 09:53 ADDENDUM 10/08/2023 09:53 [facility] ADVANCED SOLID TUMOR NGS REPORT FROM [facility] RESULT SUMMARY: Abnormal High level TMB is DETECTED DETECTED STRUCTURAL ALTERATIONS: Complex cytogenetic abnormalities (three or more aberrations) were detected. See section Genome-Wide Distribution of CNV and SNV for details DETECTED GENOMIC ALTERATIONS Tier I: Variants of Strong Clinical Significance BRCA1 p.([id number]) CREBBP p.([id number]) NFKBIA p.([id number]) ARACELIS p.? JAK3 p.([id number]) PIM1 p.([id number]) PIM1 p.([id number]) Tier III: Variants of Unknown Clinical Significance APC p.([id number]) Immunotherapy Biomarkers: Tumor Mutation Prosperity: HIGH (25.1 Mutations / MB) Microsatellite Instability: MSI Negative (1.6%) PERTINENT NEGATIVE RESULTS: The following genes are NEGATIVE for clinically relevant mutations. Mutational hotspots and surrounding exonic regions were interrogated for DNA level point mutations and indels (fusions not assayed). AKT1, ARID1A, BRAF, BRCA2, CDH1, CDKN2A, CTNNB1, EGFR, EPCAM, ERBB2, ERBB4, FBXW7, FGFR1, FGFR2, FGFR3, GNA11, GNAQ, GNAS, HRAS, IDH1, IDH2, KDR, KIT, KRAS, MEN1, MET, MLH1, MSH2, MSH6, NOTCH1, NRAS, PDGFRA, PIK3CA, PMS2, POLE, PTEN, PTPN11, RB1, RET, SMAD4, SMO, STK11, TERT, TP53, TSC1, TSC2, VHL Please see complete report in e-chart or EMR
[2023-09-08 10:00] VITALS: BP 118/76; PULSE 67; RESP 18; TEMP 36.8; O2SAT 99; BMI 38.1
[2023-09-08] MEDS: Lactated Ringers 1,000 ML 15 ML IV (10:12)
--- NOTE | 2023-09-08 12:14 | PCM.DC.SUM ---
Providers Primary Care Physician: Dr. Adan Stewart DO Medications at Discharge Home Medications naproxen 500 mg tablet 500 mg PO BID PRN pain 07/31/23 CBD oil PO 09/02/23 cinnamon bark 500 mg capsule 1,000 mg PO DAILY 09/02/23 loratadine 10 mg tablet (Allergy Relief (loratadine)) 10 mg PO DAILY PRN ALLERGIES 09/02/23 mecobalamin (vitamin B12) 500 mcg chewable tablet 500 mcg PO DAILY 09/02/23 omega 0-bjm-ezf-fish oil 300 mg-1,000 mg capsule (Fish Oil) 1 cap PO DAILY 09/02/23 hydrocodone-acetaminophen 5-325mg 5mg-325mg 1 tab PO Q6H PRN pain 09/08/23 Weight / BMI Weight Weight: 104 kg Body Mass Index (BMI) 38.1 D/C Instructions Discharge Diet: No restrictions Cleanse incision/area with: Keep Dressing Clean & Dry Additional Instructions: FOLLOW UP TOMORROW FOR DRESSING/DRAIN REMOVAL. CALL FOR APPOINTMENT [phone] Please Follow Up With: Shahid Salinas MD When: TOMORROW Meaningful Use Info Meaningful Use Diagnoses (Choose all that apply): None applicable Discharge Plan Admission Attending Provider: Shahid Salinas Primary Care Provider: Adan Stewart Discharge Orders/Prescriptions Prescriptions: No Action naproxen 500 mg tablet 500 mg PO BID PRN (Reason: pain) omega 2-aqn-ymc-fish oil [Fish Oil] 300-1,000 mg capsule 1 cap PO DAILY mecobalamin (vitamin B12) 500 mcg tablet,chewable 500 mcg PO DAILY cinnamon bark 500 mg capsule 1,000 mg PO DAILY loratadine [Allergy Relief (loratadine)] 10 mg tablet 10 mg PO DAILY PRN (Reason: ALLERGIES) CBD oil PO Rx Instructions: 750mg PO QD hydrocodone-acetaminophen 5-325 mg tablet 1 tab PO Q6H PRN (Reason: pain) Patient Comments: TAKE 1 TABLET BY MOUTH EVERY 6 HOURS NEEDED FOR PAIN FOR 3 DAYS Referrals / Follow Up: Adan Stewart DO [Primary Care Provider] - Disposition Discharge Orders: Discharge Patient (Routine); Ordered 09/08/23 Ordered By: Dr. Shahid Salinas
[2023-09-08] MEDS: Lidocaine 1% /Epi 1:100 (50ml) 50 ML VIAL (12:55)
--- NOTE | 2023-09-08 13:43 | PCM.OPRPT ---
Report of Operation Date of Procedure: 09/08/23 Pre-Operative Diagnosis: Right neck mass Post-Operative Diagnosis: same Surgery/Procedure Performed:: Deep cervical node biopsy Surgeon: Shahid Salinas Type of Anesthesia: General Anesthesiologist: Stewart Diaz Drains: 1 harriett Estimated Blood Loss (mL): minimal Description of Procedure: The patient was taken to the operating room on 09/08/2023. He was placed in the supine position on the operating room table. He was given sufficient general anesthesia. The tables was turned 90 degrees counterclockwise. The neck was prepped and draped sterilely. 1% lidocaine with epinephrine was injected into the skin overlying the intended incision. A 4 cm incision was made with a 15 blade approximately 2 fingerbreadths below the mandible overlying the mass. The incision was carried down through the skin and subcutaneous tissue. Hemostasis was achieved with bipolar cautery. Next, the platysma was identified. This was incised sharply. Fascia was dissected sharply. I tried to establish a plane anterior to the sternocleidomastoid by retracting it laterally. However, I was not visualizing the mass and felt that I would put the great vessels at risk by further dissection. I thus elected to split the sternocleidomastoid. I dissected bluntly through the sternocleidomastoid retracting both anteriorly and posteriorly. I identified preserved and skeletonized the spinal accessory nerve. This was retracted inferiorly. The mass was then visualized. Fascia was removed from the surface using blunt dissection. I then incised a piece of tissue and sent this for frozen section. This revealed lymphoid tissue. I then used cup forceps to remove a once by 1 cm piece of tissue and this was sent for lymph node protocol. Hemostasis was achieved with bipolar cautery. I then irrigated the wound with saline. I placed Mi into the biopsy site. Hemostasis was achieved. The platysma was closed with interrupted 3-0 Vicryl. A harriett drain was placed. It was sewn to the skin with 3-0 nylon. The subcutaneous tissue was closed with 4-0 Vicryl. The skin was closed with a running 6-0 nylon. A pressure dressing was then applied. The patient was then awoken and brought to the recovery room in stable condition. Blood loss minimal, replacement none. Sponge, needle, and instrument count were correct at the end of the procedure.
[2023-09-08 13:57] VITALS: BP 118/76; BP 147/76; PULSE 86; RESP 22; TEMP 36.6; O2SAT 98
[2023-09-08 14:00] VITALS: BP 118/76; BP 148/87; PULSE 71; RESP 22; O2SAT 100
[2023-09-08 14:15] VITALS: BP 118/76; BP 145/81; PULSE 80; RESP 20; O2SAT 94
[2023-09-08 14:33] VITALS: BP 118/76; BP 120/78; PULSE 90; RESP 18; TEMP 36.4; O2SAT 94
[2023-09-08 15:35] VITALS: BP 118/76; BP 127/63; PULSE 82; RESP 16; TEMP 36.1; O2SAT 96
== END 2023-09-08 15:38 | disposition home or self-care (01) ==
LOC: SDC 09:23 → AC 09:28
PROVIDERS: PCP Student in an Organized Health Care Education/Training Program; Referring Provider Otolaryngology; Visit Provider Otolaryngology
PROC: (CPT 38510; principal; 2023-09-08 10:50)
DX: C83.30 Diffuse large B-cell lymphoma, unspecified site (principal)
CPT/HCPCS: 38510; 88305; 88313; 88331; 88341; 88342; J7120; J2405

== ENCOUNTER → 2023-09-11 | Outpatient (CLI) | payer OTHER, SELFPAY ==
--- NOTE | 2023-09-11 12:52 | ECHOCSONC_ITS ---
Reason For Study: DIFFUSE LARGE B CELL LYMPHOMA Procedure This was a 2D Doppler, Color Flow transthoracic echocardiogram. Myocardial strain analysis was performed in this exam to aid in the assessment of cardiac function. The study was technically difficult. Due to body habitus and poor apical accoustic windows. Exam performed in department. Left Ventricle Normal LV size. The estimated ejection fraction is 65 %. Normal diastology for age. No regional wall motion abnormalities noted. Right Ventricle Normal RV size. Normal systolic function. Atria Normal left atrium. Normal right atrium. No doppler evidence for ASD. Mitral Valve There is no mitral valve stenosis. No mitral valve insufficiency. Tricuspid Valve There is no tricuspid stenosis. Unable to estimate RV systolic pressure due to inadequate jet, pulmonary artery pressure probably normal. Aortic Valve Trisinus/trileaflet aortic valve. There is no aortic stenosis. No aortic valve insufficiency. Pulmonic Valve There is no pulmonic valvular stenosis. No pulmonic valve insufficiency. Great Vessels Normal aortic root. Pericardium/Pleural No pericardial effusion. MMode/2D Measurements & Calculations LVIDd: 5.1 cm IVSd: 0.88 cm Ao root diam: 3.0 cm LVIDs: 3.4 cm LVPWd: 0.95 cm RVDd: 3.3 cm FS: 32.9 % LAV(MOD-bp): 55.1 ml LVAd ap4: 39.5 cm2 LVAd ap2: 31.4 cm2 LAV(MOD-bp) Indexed: 25.9 ml/m2 LVLd ap4: 9.3 cm LVLd ap2: 9.5 cm LAV(MOD-sp2): 54.3 ml EDV(MOD-sp4): 135.9 ml EDV(MOD-sp2): 87.5 ml LAV(MOD-sp4): 54.1 ml EDV(sp4-el): 142.8 ml EDV(sp2-el): 88.7 ml LVAs ap4: 20.2 cm2 LVAs ap2: 16.7 cm2 LVLs ap4: 8.0 cm LVLs ap2: 6.9 cm ESV(MOD-sp4): 42.5 ml ESV(MOD-sp2): 33.8 ml ESV(sp4-el): 43.3 ml ESV(sp2-el): 34.3 ml EF(MOD-sp4): 68.7 % EF(MOD-sp2): 61.3 % EF(sp4-el): 69.7 % SV(MOD-sp4): 93.4 ml SV(MOD-sp2): 53.7 ml SV(sp4-el): 99.6 ml LA dimension(2D): 3.8 cm LA A4 area: 18.6 cm2 RA A4 area: 16.5 cm2 TAPSE: 2.3 cm Time Measurements MV dec time: 0.19 sec Doppler Measurements & Calculations MV E max marko: 88.6 cm/sec Lat Peak E' Marko: 13.5 cm/sec Med Peak E' Marko: 10.9 cm/sec MV A max marko: 61.4 cm/sec E/E' lat: 6.6 E/E' med: 8.1 MV E/A: 1.4 MV V2 max: 102.2 cm/sec MV P1/2t max marko: 97.6 cm/sec Ao V2 max: 143.3 cm/sec MV max P.2 mmHg MV P1/2t: 59.5 msec Ao max P.2 mmHg MV V2 mean: 57.2 cm/sec MV dec slope: 480.1 cm/sec2 Ao V2 mean: 94.3 cm/sec MV mean P.5 mmHg Ao mean P.1 mmHg MV V2 VTI: 29.7 cm MVA(P1/2t): 3.7 cm2 Ao V2 VTI: 29.5 cm AV (velocity ratio): 0.78 LV V1 max: 118.5 cm/sec PA V2 max: 115.3 cm/sec LV V1 max P.6 mmHg PA V2 mean: 84.1 cm/sec LV V1 mean P.8 mmHg LV V1 mean: 78.5 cm/sec LV V1 VTI: 23.1 cm ECHO/ONC Echo Complete W/ Contrast Interpretation Summary The estimated ejection fraction is 65 %. Ordering Physician: Hernan Galdamez Referring Physician: Adan Pretty Performed By: Leonel, Tiana, RDCS, RVT
== END | disposition home or self-care (01) ==
PROVIDERS: PCP Student in an Organized Health Care Education/Training Program; Referring Provider Internal Medicine Medical Oncology; Visit Provider Internal Medicine Medical Oncology
DX: C83.31 Diffuse large B-cell lymphoma, lymph nodes of head, face, and neck (principal)
CPT/HCPCS: 93306; 93356; Q9957; A4216; C8929

== ENCOUNTER 2023-09-29 09:15 | Day surgery (SDC) | payer OTHER, SELFPAY ==
[2023-09-29] VITALS (9 sets, daily range): BP systolic 117–136; BP diastolic 75–85; PULSE 76–85; RESP 16; TEMP 36.4–36.8; O2SAT 96–99; BMI 39.2
--- NOTE | 2023-09-29 09:37 | HP.PCM_ITS ---
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 Required: No Is patient in pain?: No Allergies Penicillins Allergy (Verified 09/22/23 15:11) Hivesshellfish derived Allergy (Verified 09/22/23 15:11) Anaphylaxis Medications naproxen 500 mg tablet 500 mg PO BID PRN pain 07/31/23 [History Confirmed 09/22/23] cinnamon bark 500 mg capsule 1,000 mg PO DAILY 09/02/23 [History Confirmed 09/22/23] loratadine 10 mg tablet (Allergy Relief (loratadine)) 10 mg PO DAILY PRN ALLERGIES 09/02/23 [History Confirmed 09/22/23] mecobalamin (vitamin B12) 500 mcg chewable tablet 500 mcg PO DAILY 09/02/23 [History Confirmed 09/22/23] omega 6-pxe-dwh-fish oil 300 mg-1,000 mg capsule (Fish Oil) 1 cap PO DAILY 09/02/23 [History Confirmed 09/22/23] hydrocodone-acetaminophen 5-325mg 5mg-325mg 1 tab PO Q6H PRN pain 09/08/23 [History Confirmed 09/22/23] CBD/THC gummy PO 09/18/23 [History Confirmed 09/22/23] cholecalciferol (vitamin D3) 125 mcg (5,000 unit) capsule 125 mcg PO DAILY PRN 09/18/23 [History Confirmed 09/22/23] dexamethasone 4 mg tablet 4 mg PO DAILY #10 tabs 09/18/23 [Rx Confirmed 09/22] augviqvielea-fwt-xzdkj acid-vit K-lycop 400 mcg-20 mcg-370 mcg tablet (Men's 50 Plus Multivitamin) 1 tab PO DAILY 09/18/23 [History Confirmed 09/22/23] PFSH Medical History Arthritis Back pain Cancer Chronic cholecystitis Dental caries Marijuana use Non-smoker Pinched nerve in neck Surgical History History of back surgery History of carpal tunnel release History of laparoscopic cholecystectomy (~05/2019) Family History Other Cancer Diabetes Social History Smoking Status: Never smoker alcohol intake: current HPI HPI HPI: Patient is a 52-year-old male here for chest port. The patient recently was diagnosed with lymphoma and had surgical excision of the lymph node in his right lower neck. Patient is having swelling of the right side of his face. ROS General General: No weight change, appetite, fatigue, colon cancer, breast cancer or weakness HEENT HEENT: Yes swollen glands; No difficulty swallowing, eye injury, eye surgery or hoarseness Endo Endocrine: No thyroid disease, diabetes mellitus, thyroid cancer, Hair loss, heat intolerance or cold intolerance Skin Skin: No rash or changing moles Breast Breast: No left breast lump, right breast lump, nipple discharge, breast pain, abnormal mammogram, abnormal US or breast enlargement Musc Musculoskeletal: Yes back problems and arthritis; No rheumatoid arthritis, gout or joint pain Cardio Cardiovascular: No murmur, pacemaker, heart disease, atrial fibrillation, high blood pressure, heart attack, heart stent, palpitations, shortness of breat with exertion or chest pain Psych Psychiatric: No depression, anxiety or hearing voices Resp Respiratory: No shortness of breath, Yes sleep apnea, No cough, No COPD, No asthma, No emphysema and No wheezing Gastro Gastrointestinal: No abdominal pain, No nausea or vomiting, No diarrhea, No constipation, No blood in stool, No acid reflux, No hemorrhoids, No ulcers, Yes gallbladder problem and No black,tarry stools Dwight Hematologic: No blood thinners, No blood disorders, No bleeding, No anemia and No blood clots Neuro Neurologic: No system reviewed and no additional complaints, except as documented, No as per HPI, No abnormal gait, No abnormal hearing, No abnormal movements, No abnormal speech, No behavioral changes, No burning sensations, No confusion, No convulsions, No disequilibrium, No dizziness, No localized weakness, No frequent falls, No headache(s), No lack of coordination, No loss of vision, No memory loss, Yes numbness, No other visual disturbances, No radicular pain, No restless legs, No sensory deficit, No syncope, Yes tingling, No tremor(s), No weakness and No other Exam Const General: cooperative Orientation: alert and oriented x3 HENMT Head: normal to inspection Neck Neck: normal visual inspection and full ROM Chest Chest palpation & inspection: normal inspection of the chest Resp Effort & Inspection: normal respiratory effort Auscultation: clear to auscultation bilaterally Cardio Rate: regular rate Rhythm: regular rhythm GI Inspection: non-distended Palpation: soft and nontender Skin General: no rashes or lesions noted Neuro General: patient alert and patient oriented x3 Extrem General: full ROM Psych Appearance: grossly normal Mental Status: mental status grossly normal Assessment and Plan Assessment and Plan (1) Diffuse large B cell lymphoma: Status: Acute Qualifiers: Lymphoma site: neck Qualified Code(s): C83.31 - Diffuse large B-cell lymphoma, lymph nodes of head, face, and neck Comment: Discussed DLBC lymphoma, stage II involving Waldeyer ring nodes and R cervical nodes, treatment with [id number] as standard therapy. Risks, benefits and side effects. PT wants to proceed. Echocardiogram on 09/11/2023 showed EF 65%. (2) Encounter for insertion of venous access port: Status: Acute Plan Patient requires chest port for chemotherapy for lymphoma. I will place the chest port on the left as most of his swelling and obstructive issues are happening on the right. I also discussed the procedure as well as the risks of bleeding, infection, pneumothorax or line infection or DVT. Patient understands all the risks. I also did inform him that if the lymphoma was blocking his venous return too much I would be unable to place the port and the patient understands. Peng Storey MD Pager: [facility] [address] [place] [address], [address] [place] [address] Office: I have examined the patient and the H&P has been reviewed. There are no clinical changes since date of exam.
[2023-09-29] MEDS: Lactated Ringers 1,000 ML 15 ML IV (10:02)
[2023-09-29] MEDS: Clindamycin 900 MG/50 ML BAG 75 MG IV (10:09)
[2023-09-29] MEDS: Bupivacaine Mpf 0.5% 30 ML VIAL (10:27)
[2023-09-29] MEDS: Lidocaine 1% /Epi 1:100 (20ml) 20 ML Vial (10:27)
--- NOTE | 2023-09-29 10:37 | OP.PCM_ITS ---
Report of Operation Date of Procedure: 09/29/23 Pre-Operative Diagnosis: Need for vascular access port Post-Operative Diagnosis: Same Surgery/Procedure Performed:: Ultrasound and fluoroscopy guided left chest port placement utilizing left IJ Type of Anesthesia: Local MAC Specimen's removed: None Estimated Blood Loss (mL): 5 Description of Procedure: After obtaining informed consent patient was brought back to the operating room MAC anesthesia was induced and the left chest and neck were prepped in normal sterile fashion. Ultrasound was used to evaluate both IJs and the left IJ was selected. Next, using a needle, the left IJ was accessed and a guidewire was passed on into the superior vena cava under fluoroscopy guidance. A small incision was made over the puncture site and the dilator introducer was placed over the guidewire. Next this was capped and the pocket was made for the port. 1% lidocaine with epinephrine was injected in the proposed port site. An incision was made with scalpel. Electrocautery was used to make a pocket under the skin and subcutaneous tissue. Hemostasis was obtained. Next, the catheter was tunneled up to the neck incision site and placed through the introducer. The peel-away introducer was removed and the position of the catheter was confirmed on fluoroscopy. Next, the catheter was trimmed and attached to the port with the locking device. Interrupted 2-0 Vicryl sutures were used to anchor the port to the chest wall and then the port was placed inside the pocket. The pocket was then flushed with saline and the port irrigated with saline. There was good blood return and the port flushed easily. The skin was closed with subcutaneous interrupted 3-0 Vicryl sutures. A single 3-0 Vicryl sutures placed under the skin at the neck incision site. Steri-Strips were placed as well as op sites. The port was accessed and flushed with saline and then heparin and capped and locked. This was bandaged in place as well. Patient tolerated procedure well, was taken to PACU in stable condition. Chest x-ray will be obtained. Grafts/Implants Used: 8 [place] PowerPort Admit VTE Documentation VTE Mechan Device Prophylaxis: SCD's
--- NOTE | 2023-09-29 10:39 | DCINST_ITS ---
Discharge Instructions Procedure Port-A-Cath Diet Discharge Diet: Light diet - advance as tolerated (Pain medication may cause nausea. You should typically eat light foods as you take your pain medication.) Activity Discharge Activity: Return to Normal Activity and May Shower (with your bandage in place in 1-2 days after surgery. DO NOT SHOWER WHEN YOUR PORT IS ACCESSED.) Lifting Restrictions: Did not do heavy exertional activity today or tomorrow and then you may Dressing / Incision Call your doctor if your incision/area has: Continuous Slow Oozing, Sudden Increased Bleeding, Increased Pain/ Swelling, Increased Redness and Foul Smelling Discharge Call your doctor if you observe: Fever of 101 or Higher Remove Dressing in: 2 days Cleanse incision/area with: Soap & Water Follow Up Care Please Follow Up With: Peng Storey MD When: as needed [phone] Test Results: Test results from this visit will be discussed in further detail at your follow- up appointment, if applicable. Discharge Plan Admission Attending Provider: Peng Storey Primary Care Provider: Adan Stewart Instructions Additional Instructions / Restrictions: Alternate ibuprofen and Tylenol for pain Discharge Orders/Prescriptions Prescriptions: No Action naproxen 500 mg tablet 500 mg PO BID PRN (Reason: pain) omega 4-lnh-feo-fish oil [Fish Oil] 300-1,000 mg capsule 1 cap PO DAILY mecobalamin (vitamin B12) 500 mcg tablet,chewable 500 mcg PO DAILY cinnamon bark 500 mg capsule 1,000 mg PO DAILY loratadine [Allergy Relief (loratadine)] 10 mg tablet 10 mg PO DAILY PRN (Reason: ALLERGIES) CBD/THC gummy 1 - 2 tab PO PRN PRN (Reason: pain) cholecalciferol (vitamin D3) 125 mcg (5,000 unit) capsule 125 mcg PO DAILY Men's 50 Plus Multivitamin 400-20-370 mcg tablet 1 tab PO DAILY dexamethasone 4 mg tablet 4 mg PO DAILY Qty: 10 0RF lidocaine-prilocaine 2.5-2.5 % cream 1 applic topical ONCE PRN (Reason: port access) 30 Days Qty: 30 2RF prednisone 20 mg tablet 100 mg PO .COMPLEX Qty: 25 5RF Rx Instructions: 100 mg orally on days 1-5 of chemotherapy cycle ONLY starting 09/30/23 ondansetron 8 mg tablet,disintegrating 8 mg PO Q8H PRN (Reason: nausea and vomiting) Qty: 30 2RF prochlorperazine maleate 10 mg tablet 10 mg PO Q6H PRN (Reason: nausea and vomiting) Qty: 30 2RF allopurinol 300 mg tablet 300 mg PO DAILY Qty: 30 0RF hydrocodone-acetaminophen 5-325 mg tablet 1 tab PO Q6H PRN (Reason: pain) Patient Comments: TAKE 1 TABLET BY MOUTH EVERY 6 HOURS NEEDED FOR PAIN FOR 3 DAYS Referrals / Follow Up: Adan Stewart DO [Primary Care Provider] - Disposition Disposition (needs filled in before D/C Order can be placed): Home, Self Care
--- NOTE | 2023-09-29 11:06 | RAD_ITS ---
INDICATION: PORT PLACEMENT EXAMINATION/TECHNIQUE: X-RAY - XR Chest 1 View COMPARISON: Prior study dated: 10/02/2017. FINDINGS: LINES/DEVICES: Left-sided Port-A-Cath with its tip in the superior vena cava. No evidence of pneumothorax. LUNGS: No consolidation, edema or effusion. No pneumothorax. MEDIASTINUM AND CARDIOVASCULAR STRUCTURES: Cardiac silhouette not enlarged. Central airways and mediastinal contour are unremarkable. BONES AND SOFT TISSUES: Unremarkable. RAD/CXR for Line Placement IMPRESSION: Left sided Port-A-Cath with its tip in the superior vena cava. No active pulmonary disease. Electronically Signed: Matti Licona MD at 11:59 EST ,
== END 2023-09-29 12:12 | disposition home or self-care (01) ==
LOC: SDC 09:16 → AC 09:16
PROVIDERS: PCP Student in an Organized Health Care Education/Training Program; Referring Provider Surgery; Visit Provider Surgery
PROC: (CPT 36561; principal; 2023-09-29 10:30)
DX: Z45.2 Encounter for adjustment and management of vascular access device (principal); C83.31 Diffuse large B-cell lymphoma, lymph nodes of head, face, and neck
CPT/HCPCS: 36561; 00532; 71045; 77001; J7120; C1788

== ENCOUNTER → 2024-01-02 | Outpatient (CLI) | payer OTHER, SELFPAY ==
--- NOTE | 2024-01-02 09:48 | ECHOLCONC_ITS ---
Reason For Study: Non Hodgkins Lymphoma Procedure This was a limited 2D transthoracic echocardiogram. Myocardial strain analysis was performed in this exam to aid in the assessment of cardiac function. Contrast injection was performed. The study was technically difficult. Exam performed in department. Left Ventricle Normal LV size. Left ventricular systolic function is normal. The estimated ejection fraction is 55 %. No regional wall motion abnormalities noted. Right Ventricle Normal RV size. Normal systolic function. Atria Normal left atrium. Normal right atrium. Mitral Valve Normal mitral valve. Tricuspid Valve Normal tricuspid valve. Aortic Valve The aortic valve is not well visualized. Pulmonic Valve The pulmonic valve is not well visualized. Great Vessels Normal aortic root. The pulmonary artery is normal size. Inferior vena cava collapse with respiration. Pericardium/Pleural No pericardial effusion. Medication 20 gauge I.V. with prn adaptor inserted into right arm. Diluted definity 2ml given slow IV push to enhance endocardial definition. MMode/2D Measurements & Calculations LVIDd: 5.1 cm IVSd: 0.99 cm LA dimension: 4.0 cm LVIDs: 3.3 cm LVPWd: 0.94 cm FS: 34.9 % LAV(MOD-bp): 41.5 ml LVAd ap4: 36.7 cm2 LVAd ap2: 31.0 cm2 LAV(MOD-bp) Indexed: 19.5 ml/m2 LVLd ap4: 8.4 cm LVLd ap2: 7.6 cm LAV(MOD-sp2): 39.7 ml EDV(MOD-sp4): 129.3 ml EDV(MOD-sp2): 103.4 ml LAV(MOD-sp4): 40.9 ml EDV(sp4-el): 136.4 ml EDV(sp2-el): 106.8 ml LVAs ap4: 22.7 cm2 LVAs ap2: 18.8 cm2 LVLs ap4: 7.1 cm LVLs ap2: 6.7 cm ESV(MOD-sp4): 58.5 ml ESV(MOD-sp2): 43.6 ml ESV(sp4-el): 61.4 ml ESV(sp2-el): 44.8 ml EF(MOD-sp4): 54.8 % EF(MOD-sp2): 57.8 % EF(sp4-el): 55.0 % SV(MOD-sp4): 70.9 ml SV(MOD-sp2): 59.8 ml SV(sp4-el): 75.0 ml LA A4 area: 15.5 cm2 ECHO/ONC Echo Limited w/Contrast Interpretation Summary Normal LV size. Left ventricular systolic function is normal. The estimated ejection fraction is 55 %. Contrast injection was performed. The global longitudinal strain is normal. The global longitudinal strain = -19.2 % (normal). Ordering Physician: Hernan Galdamez Referring Physician: Hernan Galdamez Performed By: Jb Mackenzie RCS
--- OUTSIDE RECORDS SUMMARY | 2024-01-02 10:09 | XMS RPT_ITS | CCD ---
Author Name Unknown Address [address] [place] [address] Organization [facility] Care Team Providers Care Wall Covering Installer Name Role Phone MADHURI VELÁSQUEZ, DR HOOPER Primary Care Physician [phone] Theresa Zapata PT Unavailable Dennis Nuñez DO Primary Care Provider Mallory vailable MADHURI VELÁSQUEZ, DR HOOPER Attending Unavailable MADHURI VELÁSQUEZ, DR HOOPER Primary Care Unavailable MADHURI VELÁSQUEZ, DR HOOPER Attending Unavailable MADHURI VELÁSQUEZ, DR HOOPER Primary Care Unavailable Allergies Allergy Classification Reported Allergen(s) Allergy Type Date of Onset Reaction(s) Facility (3 sources) Penicillin; Translations: [penicillin] Drug Allergy Unknown [facility] (3 sources) Procaine; Translations: [procaine] Drug Allergy [facility] (3 sources) Seafood Food allergy Anaphylaxis (disorder) [facility] (3 sources) Shellfish Food allergy Dyspnea (finding) [facility] (1 source) Shellfish Drug Intolerance 9 Swelling [facility] Work Phone: Medications Current Medications Medication Drug Class(es) Dates Sig (Normalized) Sig (Original) Multivitamin preparation (3 sources) Start: 08-21-2021 take 1 tablet by mouth once daily Multivitamin Dose = 1 tab(s), Oral, Daily, 0 Refill(s) Start Date: 08/21/21 Status: Ordered Vitamin D3 (3 sources) Start: 08-21-2021 Vitamin D3 Oral, Every other day, 0 Refill(s) Start Date: 08/21/21 Status: Ordered Completed/Discontinued Medications Medication Drug Class(es) Dates Sig (Normalized) Sig (Original) cyclobenzaprine hydrochloride 10 mg oral tablet (1 source) Muscle Relaxant Start: 01-29-2019 take 1 tablet by mouth every eight hours as needed cyclobenzaprine (FLEXERIL) 10 mg tablet Take 1 tablet by mouth three times daily as needed. 15 tablet 0 01/29/2019 Active Problems Problem Classification Problem Date Documented Da te Episodic/Chronic Biliary tract disease (3 sources) Common bile duct calculus 06-15-2019 Episodic Other connective tissue disease (1 source) Pain in left arm; Translations: [Pain in left arm] Episodic Other nervous system disorders (1 source) Paresthesia of upper limb 09-19-2022 Episodic Other nutritional; endocrine; and metabolic disorders (3 sources) Body mass index 30+ - obesity 08-21-2021 Chronic Otitis media and related conditions (3 sources) Bilateral tympanosclerosis 11-24-2019 Episodic Unclassified (3 sources) Patient encounter status 09-09-2019 Results Test Name Value Interpretation Reference Range Facil ity Vital Signs Date Time Vital Sign Value Performing Clinician Ranjan chiang 06-15-2022 08:39-0400 Body temperature 98.1 [degF] Janet Campos APRN.CNP Work Phone: [facility] 06-15-2022 08:39-0400 Body weight 105.23 kg Janet Campos APRN.CNP Work Phone: [facility] 06-15-2022 08:39-0400 Diastolic blood pressure 86 mm[Hg] Janet Campos APRN.GUEST HOUSE MANAGER Work Phone: [facility] 06-15-2022 08:39-0400 Heart rate 73 /min Janet Campos APRN.CNP Work Phone: [facility] 06-15-2022 08:39-0400 Respiratory rate 22 /min Janet Campos APRN.CNP Work Phone: [facility] 06-15-2022 08:39-0400 SaO2% (BldA) [Mass fraction] 98 % Janet Campos APRN.CNP Work Phone: [facility] 06-15-2022 08:39-0400 Systolic blood pressure 122 mm[Hg] Janet Campos APRN.GUEST HOUSE MANAGER Work Phone: [facility] Encounters Encounter Date Encounter Type Care Provider Facility Start: 09-04-2023 End: 09-05-[address] SANDIE DHALIWAL DO Facility:B Start: 10-01-2022 End: 10-02-[address] SANDIE DHALIWAL DO Facility:[facility] Start: 10-01-2022 End: 10-01-[address] SANDIE DHALIWAL DO [facility] Start: 07-11-2022 End: 07-11-2022 Patient encounter procedure LARRY KIRBYTS DO [facility] Start: 06-15-2022 End: 06-15-2022 Patient encounter procedure Janet Campos APRN.GUEST HOUSE MANAGER Work Phone: [facility] Procedures Date Procedure Procedure Detail Performing Clinician Start: 06-03-2020 Carpal tunnel syndro me (disorder) DR SANDIE DHALIWAL DO Plan of Treatment Date Care Activity Detail Author Start: 07-04-2022 Influenza vaccination INFLUENZA (#1) [facility] Start: 2020 SHINGRIX VACCINE (1 of 2) SHINGRIX V ACCINE (1 of 2) [facility] Start: 2015 COLOGUARD (FIT-DNA) COLOGUARD (FIT-D NA) [facility] Start: 2015 Colonoscopy COLONOSCOPY [facility] Start: 2015 COLORECTAL CANCER SCREENING COLORECTAL CANCER SCREENING [facility] Start: [address] COLONOGRAPHY [facility] Start: 2015 DIABETES SCREEN DIABETES SCREEN [facility] Start: 2015 FECAL OCCULT BLOOD FECAL OCCULT BLOO D [facility] Start: 2015 SIGMOIDOSCOPY SIGMOIDOSCOPY [facility] Start: 2005 LIPID SCREEN LIPID SCREEN [facility] Start: 1989 Urine microalbumin profile DTAP,TDAP ,TD (1 - Tdap) [facility] Start: 1988 HEPATITIS C SCREENING HEPATITIS C SC FANNYNING [facility] Start: 1988 HIV SCREENING HIV SCREENING [facility] Start: 1982 Adult depression scr eening assessment DEPRESSION SCREENING [facility] Start: 04-12-1971 COVID-19 VACCINE (#1) COVID-19 VACCI NE (#1) [facility] Start: 1970 HEPATITIS B (1 of 3 - 3-dose series) HEPATITIS B (1 of 3 - 3-dose series) [facility] Immunizations Immunization Date Immunization Notes Care Provider Fa cility 09-19-2022 influenza, injectabl e, quadrivalent, contains preservative; Translations: [Fluarix PF Quadrivalent ] DR SANDIE DHALIWAL DO [facility] 09-10-[address] SANDIE DHALIWAL DO [facility] 08-21-2021 influenza, injectabl e, quadrivalent, contains preservative; Translations: [Fluarix PF Quadrivalent ] DR SANDIE DHALIWAL DO [facility] 08-10-2020 influenza, injectabl e, quadrivalent, preservative free; Translations: [Fluarix PF Quadrivalent ] DR SANDIE DHALIWAL DO [facility] 09-02-2019 influenza, injectabl e, quadrivalent, preservative free; Translations: [Fluarix PF Quadrivalent ] DR SANDIE DHALIWAL DO [facility] 09-02-2019 tetanus toxoid, redu paty diphtheria toxoid, and acellular pertussis vaccine, adsorbed; Translations: [Boostrix (Tdap)] DR SANDIE DHALIWAL DO [facility] 09-15-2018 influenza virus vaccine, unspecified formulation DR SANDIE DHALIWAL DO [facility] 08-07-2017 influenza virus vaccine, unspecified formulation DR SANDIE DHALIWAL DO [facility] [place] Payers Date Payer Category Payer Unknown [id number] 2022 Self-pay 2016 Private Health Insurance [facility] CHOICE PLUS [id number] 2016-Present [phone] [address] [address] [place] [address] HMO [id number] 1970 Unknown [id number] Unknown [id number] Social History Date Type Detail Facility Start: 06-10-2019 End: 06-15-2022 Never smoked tobacco (finding) [facility] Sex Assigned At Male [facility] Start: 06-15-2022 Tobacco use and exposure Smokeless tobacco non-user [facility] Start: 1970 Sex Assigned At Not on file [facility] Evaluation + Plan note 09-19-2022 Laboratory Note Date & Type Note Facility 09-19-2022 Evaluation + Plan note Future Scheduled TestsVitamin B12 Level 09/19/22Glucose Level 09/19/22Lipid Profile 09/19/22 [facility] Clinical Note 07-11-2022 Note Date & Type Note Facility 07-11-2022 Note ORIGINAL EXAMINATION: MRI OF THE CERVICAL SPINE WITHOUT CONTRAST 07/11/2022 8:21 am TECHNIQUE: Multiplanar multisequence MRI of the cervical spine was performed without the administration of intravenous contrast. COMPARISON: None. HISTORY: SPINAL STENOSIS OF CERVICAL REGION; OTHER SPONDYLOSIS W RADICULOPATHY OF CERVICAL REGION; OTHER INFLAMMATORY SPONDYLOPATHY OF CERVICAL REGION FINDINGS: BONES/ALIGNMENT: Straightening of the cervical lordosis is likely positional. The vertebral body heights are preserved. The marrow signal pattern is within normal limits. SPINAL CORD: No abnormal cord signal is seen. SOFT TISSUES: No soft tissue abnormality. COMMENT: The spinal canal is congenitally narrowed. C2-C3: Disc osteophyte complex most pronounced to the right of midline results in mild central canal stenosis. Uncovertebral and facet arthropathy causes mild left foraminal stenosis. C3-C4: Trace diffuse disc osteophyte complex and central congenital canal narrowing results in mild central canal stenosis. Uncovertebral and facet arthrosis causes moderate right and mild left foraminal stenosis. C4-C5: Facet arthrosis contributes to moderate bilateral, left greater than right foraminal stenosis. No central canal stenosis. C5-C6: A small diffuse posterior disc osteophyte complex with superimposed central and left subarticular herniation causes severe central canal and left lateral recess stenosis with remodeling of the ventral spinal cord (axial GRE image 13). Disc material may be present in the right subarticular zone at the mid C5 vertebral body level (axial T2 image 15 series 7). Uncovertebral and facet arthrosis results in severe bilateral foraminal stenosis. C6-C7: Disc osteophyte complex, ligamentum flavum hypertrophy, and facet arthropathy contribute to severe central canal stenosis with remodeling of the ventral spinal cord. Uncovertebral and facet arthrosis causes severe bilateral foraminal stenosis. C7-T1: Disc osteophyte complex with superimposed left subarticular and medial foraminal herniation and uncovertebral/facet arthrosis causes borderline mild central canal, severe left and moderate to severe right foraminal stenosis. IMPRESSION: 1. C5-C6: Posterior disc osteophyte complex with superimposed left subarticular herniation causing remodeling of the spinal cord. Severe central canal and severe bilateral foraminal stenosis is present. 2. C6-C7: Severe central canal and bilateral foraminal stenosis with remodeling of the ventral spinal cord. 3. C7-T1: Left subarticular medial foraminal herniation causing severe left foraminal stenosis. In addition moderate to severe right foraminal and mild central canal stenosis is demonstrated. 4. Correlation with CT examination of the cervical spine and or CT myelogram if clinically appropriate recommended. I have personally reviewed the images of this examination and agree with the resident's findings and interpretation. Interpreted by: Ananth Martinez MD Preliminary Report By: Brittany Benavides Electronically signed By Ananth Martinez MD Dictated Date: 07/11/2022 3:47:14 PM Prelim Date: 07/11/2022 5:43:08 PM Sign Date: 07/11/2022 5:43:08 PM Ordering Provider: [facility] Clinical Note 07-11-2022 Note Date & Type Note Facility 07-11-2022 Note ORIGINAL EXAMINATION: MRI OF THE CERVICAL SPINE WITHOUT CONTRAST 07/11/2022 8:21 am TECHNIQUE: Multiplanar multisequence MRI of the cervical spine was performed without the administration of intravenous contrast. COMPARISON: None. HISTORY: SPINAL STENOSIS OF CERVICAL REGION; OTHER SPONDYLOSIS W RADICULOPATHY OF CERVICAL REGION; OTHER INFLAMMATORY SPONDYLOPATHY OF CERVICAL REGION FINDINGS: BONES/ALIGNMENT: Straightening of the cervical lordosis is likely positional. The vertebral body heights are preserved. The marrow signal pattern is within normal limits. SPINAL CORD: No abnormal cord signal is seen. SOFT TISSUES: No soft tissue abnormality. COMMENT: The spinal canal is congenitally narrowed. C2-C3: Disc osteophyte complex most pronounced to the right of midline results in mild central canal stenosis. Uncovertebral and facet arthropathy causes mild left foraminal stenosis. C3-C4: Trace diffuse disc osteophyte complex and central congenital canal narrowing results in mild central canal stenosis. Uncovertebral and facet arthrosis causes moderate right and mild left foraminal stenosis. C4-C5: Facet arthrosis contributes to moderate bilateral, left greater than right foraminal stenosis. No central canal stenosis. C5-C6: A small diffuse posterior disc osteophyte complex with superimposed central and left subarticular herniation causes severe central canal and left lateral recess stenosis with remodeling of the ventral spinal cord (axial GRE image 13). Disc material may be present in the right subarticular zone at the mid C5 vertebral body level (axial T2 image 15 series 7). Uncovertebral and facet arthrosis results in severe bilateral foraminal stenosis. C6-C7: Disc osteophyte complex, ligamentum flavum hypertrophy, and facet arthropathy contribute to severe central canal stenosis with remodeling of the ventral spinal cord. Uncovertebral and facet arthrosis causes severe bilateral foraminal stenosis. C7-T1: Disc osteophyte complex with superimposed left subarticular and medial foraminal herniation and uncovertebral/facet arthrosis causes borderline mild central canal, severe left and moderate to severe right foraminal stenosis. IMPRESSION: 1. C5-C6: Posterior disc osteophyte complex with superimposed left subarticular herniation causing remodeling of the spinal cord. Severe central canal and severe bilateral foraminal stenosis is present. 2. C6-C7: Severe central canal and bilateral foraminal stenosis with remodeling of the ventral spinal cord. 3. C7-T1: Left subarticular medial foraminal herniation causing severe left foraminal stenosis. In addition moderate to severe right foraminal and mild central canal stenosis is demonstrated. 4. Correlation with CT examination of the cervical spine and or CT myelogram if clinically appropriate recommended. I have personally reviewed the images of this examination and agree with the resident's findings and interpretation. Interpreted by: Ananth Martinez MD Preliminary Report By: Brittany Benavides Electronically signed By Ananth Martinez MD Dictated Date: 07/11/2022 3:47:14 PM Prelim Date: 07/11/2022 5:43:08 PM Sign Date: 07/11/2022 5:43:08 PM Ordering Provider: [facility] Progress note 06-15-2022 Note Date & Type Note Facility 06-15-2022 Note HNO ID: [id number] Author: Janet Campos APRN.GUEST HOUSE MANAGER Service: ? Author Type: Nurse Practitioner Type: Progress Notes Filed: 06/15/2022 9:04 AM Note Text: Patient came in with complaints of intermittent arm pain and numbness for 2 weeks. Said its mostly when he lays down and its a 10/10 and then will go down to a 2. Patient does deny any cardiac pain or shortness of breath. The pain is not reproducible. Patient father had a heart attack and bypass at 48. At this time I feel it necessary to get a full workup at the ER. [facility] History of Present illness Narrative 06-15-2022 Janet Campos APRN.GUEST HOUSE MANAGER - 06/15/2022 9:02 AM EDT Note Date & Type Note Facility 06-15-2022 History of Presen t illness Narrative Patient came in with complaints of intermittent arm pain and numbness for 2 weeks. Said its mostly when he lays down and its a 10/10 and then will go down to a 2. Patient does deny any cardiac pain or shortness of breath. The pain is not reproducible. Patient father had a heart attack and bypass at 48. At this time I feel it necessary to get a full workup at the ER. documented in this encounter [facility] Evaluation + Plan note 08-21-2021 Laboratory Note Date & Type Note Facility 08-21-2021 Evaluation + Plan note Future Scheduled TestsGlucose Level 08/21/21Lipid Profile 08/21/21 [facility] Evaluation note Note Date & Type Note Facility documented in this encounter [facility] Hospital course Narrative Note Date & Type Note Facility Hospital course Narrative No data available for this section [facility] Hospital Discharge instructions Note Date & Type Note Facility Hospital Discharge instructions No data available for this section [facility] Progress note Note Date & Type Note Facility Progress note No data available for this section [facility] Summary Purpose Family History No Family History Records FoundNo Family History Records Found Advance Directives No Advanced Directives Records FoundNo Advanced Directives Records Found Additional Source Comments Source Comments (unrecognize d section and content) In the event this informatio n is protected by the Federal Confidentiality of Alcohol and Drug Abuse Patient Records regulations: The Federal rules restrict any use of the information to criminally investigate or prosecute any alcohol or drug abuse patient.[facility] Care Teams (unrecognized sec tion and content) (unrecognized sect ion and content) No Status Records FoundNo Status Records Found INFORMATION SOURCE (unrecogn ized section and content) DATE CREATED AUTHOR AUTHOR'S REGINO ATION 09/07/2023 [facility] ([place]) Care Team (unrecognized sect ion and content) Care Team Personnel Name: Tabby Zapata Clerisaak Cardenas PT Position: P3 Scheduling - Airport Manager Advanced Member Role: Other Name: SANDIE DHALIWAL DO Position: P4 Physician - Primary Care Med Service: Active Provider Member Role: Primary Care Physician Address: Address: [address] [place] [address] Care Team Related Persons Name: KARLA DICKERSON Care Team Personnel Name: Tabby Zapatarisaak Cardenas PT Position: P3 Scheduling - Airport Manager Advanced Member Role: Other Name: SANDIE DHALIWAL DO Position: P4 Physician - Primary Care Member Role: Primary Care Physician Address: Address: [address] [place] [address] Care Team Related Persons Name: KARLA DICKERSON FOR RECORDS PERTAINING TO PATIENTS WHO ARE OR HAVE BEEN ENROLLED IN A CHEMICAL DEPENDENCY/SUBSTANCEABUSE PROGRAM, SOME INFORMATION MAY BE OMITTED. This clinical summary was aggregated from multiple sources. Caution should be exercised in using it in the provision of clinical care. This summary normalizes information from multiple sources, and as a consequence, information in this document may materially change the coding, format and clinical context of patient data. In addition, data may be omitted in some cases. CLINICAL DECISIONS SHOULD BE BASED ON THE PRIMARY CLINICAL RECORDS. [facility]. provides no warranty or guarantee of the accuracy or completeness of information in this document.
== END | disposition home or self-care (01) ==
LOC: CVS 09:47
PROVIDERS: PCP Student in an Organized Health Care Education/Training Program; Referring Provider Internal Medicine Medical Oncology; Visit Provider Internal Medicine Medical Oncology
DX: C83.30 Diffuse large B-cell lymphoma, unspecified site (principal); Z79.899 Other long term (current) drug therapy; Z51.81 Encounter for therapeutic drug level monitoring
CPT/HCPCS: 93308; 93356; Q9957; C8924

== ENCOUNTER → 2024-12-11 | Outpatient (CLI) | payer BC, SELFPAY ==
--- NOTE | 2024-12-11 07:25 | MRI_ITS ---
PROCEDURE: MRI cervical spine without IV contrast REASON FOR EXAM: Left hand numbness TECHNIQUE: Multisequence multiplanar MR images of the cervical spine were obtained without the administration of intravenous contrast. COMPARISON: CT 08/18/2023 FINDINGS: Vertebral body heights are maintained. Negative for acute fracture or marrow replacement. Mild degenerative endplate changes on the right at C6-C7. Alignment is within normal limits. Spinal cord is of normal caliber and signal intensity. No paraspinal mass. C2-3: Small posterior disc osteophyte complex. Mild right uncovertebral and facet arthrosis. Mild spinal stenosis. No significant foraminal narrowing. C3-4: Posterior disc osteophyte complex and minimal uncovertebral arthrosis. Mild/moderate spinal stenosis. Moderate/severe right and moderate left foraminal narrowing. C4-5: Small posterior disc osteophyte complex. Mild uncovertebral and facet arthrosis. Mild/moderate spinal stenosis. Moderate bilateral foraminal narrowing. C5-6: Posterior disc osteophyte complex with superimposed left central disc protrusion abutting the ventral cord. Severe spinal stenosis. Bilateral uncovertebral and facet arthrosis. Severe bilateral foraminal narrowing, greater on the right. C6-7: Posterior disc osteophyte complex eccentric to the left. Indentation of the ventral cord. Severe spinal stenosis. Bilateral uncovertebral arthrosis. Severe bilateral foraminal narrowing, slightly greater on the right. C7-T1: Posterior disc osteophyte complex eccentric to the left. Bilateral uncovertebral arthrosis. Mild spinal stenosis. Severe bilateral foraminal narrowing, greater on the right. MRI/Spine Cervical (Routine) IMPRESSION: 1. Acquired multilevel spinal stenosis, severe from C5 through C7 as above. 2. Moderate to severe multilevel bilateral foraminal narrowing, likely greatest at C7-T1. Reading Location: [facility]
== END | disposition home or self-care (01) ==
LOC: MRI 07:10
PROVIDERS: PCP Student in an Organized Health Care Education/Training Program; Referring Provider Student in an Organized Health Care Education/Training Program; Visit Provider Student in an Organized Health Care Education/Training Program
DX: M54.12 Radiculopathy, cervical region (principal)
CPT/HCPCS: 72141